=== PATIENT | female | born 1970 | race Caucasian/White ===

== ENCOUNTER → 2020-03-03 12:29 | Outpatient (CLI) | payer OTHER, SELFPAY ==
--- NOTE | ~2020-03-03 | MM_ITS ---
EXAMINATION: MM screening mitul BI w elmer HISTORY: Screening mammogram TECHNIQUE: Craniocaudal and mediolateral oblique 3-D tomosynthesis images were obtained and synthetic 2-D images were generated. CAD analysis was submitted and interpreted. COMPARISON: No prior mammogram is available for comparison at this institution. BREAST PARENCHYMAL COMPOSITION: There are scattered areas of fibroglandular density. FINDINGS: There are developing asymmetries in the right breast. There are developing clustered calcif ications in the upper outer quadrant of the left breast. IMPRESSION: 1. Developing right breast asymmetries. Developing clustered left breast calcifications. 2. Additional spot compression and mediolateral views with possible follow-up breast ultrasound recom mended. BI-RADS Category 0: Incomplete: Needs additional imaging evaluation. Reviewed, dictated and finalized at location A. IMPRESSION: 1. Developing right breast asymmetries. Developing clustered left breast calcif ications. 2. Additional spot compression and mediolateral views with possible follow-up b reast ultrasound recommended. BI-RADS Category 0: Incomplete: Needs additional imaging evaluation.
== END ==
PROVIDERS: PCP Family Medicine; Visit Provider Nurse Practitioner
DX: Z12.31 Encounter for screening mammogram for malignant neoplasm of breast (principal); R92.8 Other abnormal and inconclusive findings on diagnostic imaging of breast
CPT/HCPCS: 77063; 77067

== ENCOUNTER 2020-03-09 13:20 | Outpatient (CLI) | payer OTHER, SELFPAY ==
--- NOTE | ~2020-03-09 | MMUS_ITS ---
EXAMINATION: MM diagnostic mammo BI, US breast BI complete HISTORY: Developing right breast asymmetries and developing clustered left breast calcifications repo rted on 03/03/2020 bilateral digital screening mammogram TECHNIQUE: ML and spot 3-D tomosynthesis images of the breasts were performed and synthetic 2-D image s were generated. Magnification views of the left breast. CAD analysis was submitted and interpreted. High resolution complete bilateral breast ultrasound was performed. COMPARISON: 03/03/2020 bilateral digital screening mammogram 08/07/2017 bilateral digital screening mammogram FINDINGS: MAMMOGRAPHIC FINDINGS: No suspicious reproducible mass or architectural distortion of either breast is evident. Numerous bilateral microcalcifications are scattered in the breasts, more numerous on the left. Most of these appear benign, with circular shape, some with milk of calcium. However, there is one indeter minate cluster of grouped granular appearing microcalcifications situated in the upper outer quadrant of the left breast at mid to posterior depth. ULTRASOUND: Right breast: 12:00 3 cm from nipple: 6.3 x 4.6 x 7.1 mm simple cyst and 6.6 x 3.2 x 7.5 mm adjacent simple cyst 2:00 3 cm from nipple: 2.3 x 5.3 x 3.4 mm parallel circumscribed likely complicated cyst without inte rnal vascularity or posterior shadowing 7:00 2 cm from nipple: Parallel circumscribed 2.1 x 7.2 x 6.2 mm simple cyst with through transmissio n and posterior enhancement, no internal vascularity 8:00 2 cm from nipple: Multi-septated parallel circumscribed cyst measuring 2.3 x 6.3 x 4.0 mm area Left breast: 3:00 4 cm from nipple: 2.8 x 4.4 x 5.1 mm simple cyst, with no internal vascularity IMPRESSION: 1. Indeterminate cluster of grouped granular microcalcifications at mid to posterior depth in the upp er outer quadrant of the left breast 2. Stereotactic biopsy of left breast is recommended. BI-RADS category 4, suspicious findings. On 03/10/[address] Watts telephoned the report including the indeterminate granular microc alcifications at the upper outer quadrant of left breast and recommendation for stereotactic biopsy o f same to Dr. Daniel's Nurse Practitioner Mariam. Reviewed, dictated and finalized at location A. IMPRESSION: 1. Indeterminate cluster of grouped granular microcalcifications at mid to post erior depth in the upper outer quadrant of the left breast 2. Stereotactic biopsy of left breast is recommended. BI-RADS category 4, suspicious findings. On 03/10/[address] Watts telephoned the report including the indeter minate granular microcalcifications at the upper outer quadrant of left breast and recommendation for stereotactic biopsy of same to Dr. Daniel's Nurse Pract esvin Becerra.
== END 2020-03-09 13:21 | disposition home or self-care (01) ==
LOC: ANHIMG 13:23
PROVIDERS: PCP Family Medicine; Visit Provider Obstetrics & Gynecology Gynecology
DX: R92.8 Other abnormal and inconclusive findings on diagnostic imaging of breast (principal)
CPT/HCPCS: 76641; 77066

== ENCOUNTER → 2020-08-18 08:56 | Outpatient (CLI) | payer OTHER, SELFPAY ==
--- NOTE | ~2020-08-18 | XR_ITS ---
EXAMINATION: XR chest 2V EXAM DATE: 08/18/2020 09:18 INDICATION: Personal history of infection. Still having shortness of breath, cough and fatigue. TECHNIQUE: Frontal and lateral projections of the chest obtained and reviewed. There is no prior wes dy for comparison. FINDINGS: The lungs are clear. There are no pleural effusions. The cardiomediastinal silhouette is within normal limits. There is no pneumothorax suspected. The bones and soft tissues are unremarkab le. IMPRESSION: Normal chest x-ray exam. Reviewed, dictated and finalized at location A. IMPRESSION: Normal chest x-ray exam.
== END ==
PROVIDERS: PCP Family Medicine; Visit Provider Physician Assistant
DX: R05 Cough (principal); R06.02 Shortness of breath; Z86.19 Personal history of other infectious and parasitic diseases
CPT/HCPCS: 71046

== ENCOUNTER 2023-08-02 10:01 | Outpatient (CLI) | payer OTHER, SELFPAY ==
--- NOTE | 2023-08-02 11:06 | ECG_ITS ---
Measurements Intervals Johnson Rate: 62 P: 19 PA: 142 QRS: 34 QRSD: 100 T: 55 QT: 440 QTc: 450 Interpretive Statements SINUS RHYTHM MINIMAL Q WAVES- INFERIOR LEADS BORDERLINE ECG NO PREVIOUS ECG AVAILABLE FOR COMPARISON Electronically Signed On 08-02-2023 11:21:18 CDT by Saeed Ramirez D.O.
[2023-08-02 11:31] LABS: Hematocrit 40.1 % (37.0-47.0); Hemoglobin 13.2 g/dL (12.0-15.0)
[2023-08-02 11:40] LABS: Estimated Glomerular Filt Rate > 60; Glucose 89 mg/dL (65-110)
[2023-08-02 11:40] LABS: Urine Cotinine NEGATIVE
[2023-08-02 13:05] LABS: Hemoglobin A1C 5.4 % (<5.7)
== END 2023-08-02 10:02 | disposition home or self-care (01) ==
PROVIDERS: PCP Family Medicine; Visit Provider Orthopaedic Surgery
DX: M17.12 Unilateral primary osteoarthritis, left knee (principal); R06.02 Shortness of breath; Z01.818 Encounter for other preprocedural examination
CPT/HCPCS: 80307; 82040; 82565; 82947; 83036; 85014; 85018; 93005

== ENCOUNTER 2023-08-02 10:06 | Outpatient (CLI) | payer OTHER, SELFPAY ==
--- NOTE | ~2023-08-02 | CT_ITS ---
EXAMINATION: CT LE LT wo con DATE: 08/02/2023 10:37 INDICATION: Left knee osteoarthritis. TECHNIQUE: Computed tomography (CT) of the left lower limb was performed without intravenous contrast . Automated exposure control and iterative reconstruction technique were employed. The dose-length pr oduct was 2336.81 mGy-cm. COMPARISON: Left knee radiograph 07/14/2023 FINDINGS: There is an intrauterine device in expected position. There is mild left hip osteoarthritis . There is a benign bone island in left pelvis. There is severe osteoarthritis of medial compartment of the knee and mild osteoarthritis of lateral and patellofemoral compartments of the knee. There is a small knee joint effusion. There is a moderate-sized Ferrara's cyst. IMPRESSION: 1. Severe left knee osteoarthritis. 2. Small left knee joint effusion. 3. Moderate-sized left Ferrara's cyst. 4. Mild left hip osteoarthritis. Reviewed, dictated and finalized at location A.
== END 2023-08-02 10:07 | disposition home or self-care (01) ==
LOC: ANHIMG 10:07
PROVIDERS: PCP Family Medicine; Visit Provider Orthopaedic Surgery
DX: M17.12 Unilateral primary osteoarthritis, left knee (principal); M16.12 Unilateral primary osteoarthritis, left hip; M71.22 Synovial cyst of popliteal space [Baker], left knee; M25.462 Effusion, left knee
CPT/HCPCS: 73700; 80307; 82040; 82565; 82947; 83036; 85014; 85018; 93005

== ENCOUNTER 2023-11-22 11:53 | Outpatient (CLI) | payer OTHER, SELFPAY ==
[2023-11-22 13:11] LABS: Basophils Absolute Auto 0.1 K/mm3 (0.0-0.1); Basophils Percent Auto 0.8 % (0.2-1.2); Eosinophils Absolute Auto 0.1 K/mm3 (0-0.3); Eosinophils Percent Auto 1.4 % (0-4.4); Hematocrit 45.2 % (37.0-47.0); Immature Granulocyte Absolute 0.04 K/mm3 (0.00-0.031); Immature Granulocyte Percent A 0.5 % (0-0.5); Lymphocytes Absolute Auto 2.42 K/mm3 (0.9-3.2); Lymphocytes Percent Auto 32.8 % (18.3-44.2); Mean Corpuscular HGB Conc 33.2 g/dl (32-36); Mean Corpuscular Hemoglobin 28.4 pg (26-34); Mean Corpuscular Volume 85.6 fl (80-100); Mean Platelet Volume 10.4 fl (7.4-10.4); Monocytes Absolute Auto 0.7 K/mm3 (0.1-0.6); Monocytes Percent Auto 8.8 % (2.6-8.5); Neutrophils Absolute Auto 4.1 K/mm3 (1.3-6.7); Neutrophils Percent Auto 55.7 % (45.5-73.1); Platelet Count Result 262 k/mm3 (150-375); Red Blood Count 5.28 M/mm3 (4.2-5.4); Red Cell Distribution Width 12.9 % (11.5-14.5); White Blood Count 7.4 K/mm3 (4.5-10.0)
[2023-11-22 13:21] LABS: Urine Cotinine NEGATIVE
[2023-11-22 13:22] LABS: Hemoglobin A1C 5.4 % (<5.7)
[2023-11-22 13:33] LABS: Albumin Level 4.3 g/dL (3.5-5.1); Estimated Glomerular Filt Rate > 60; Glucose 91 mg/dL (65-110)
== END 2023-11-22 11:54 | disposition home or self-care (01) ==
LOC: ANHSURGERY 11:58
PROVIDERS: PCP Family Medicine; Visit Provider Orthopaedic Surgery
DX: Z01.818 Encounter for other preprocedural examination (principal); M17.12 Unilateral primary osteoarthritis, left knee
CPT/HCPCS: 80307; 82040; 82565; 82947; 83036; 85025; 87081

== ENCOUNTER 2023-12-12 01:35 | Day surgery (SDC) | payer OTHER, SELFPAY ==
--- NOTE | 2023-11-22 11:30 | PC.NURSE ---
PRE-OP INSTRUCTIONS, PLEASE READ CAREFULLY Report to the Outpatient Waiting Room, entrance under the green pavilion located off [facility], at time _0630_ on date _12/12/23_. Planned Procedure Time: _0830_. PACK A SMALL OVERNIGHT BAG AND LEAVE IN THE CAR ALONG WITH YOUR WALKER Time changes happen often and if your time is changed the preop area will call you the afternoon before. - You and your visitor will be asked to self-screen and do not enter if you have any COVID symptoms. - A mask is optional within the hospital at this time. -VISITING HOURS 8AM-8PM Patients may have clear liquids (water, carbonated beverages, clear teas, apple juice) until 3 hours prior to surgery (0530 AM) with a maximum of 20 ounces. - No food from midnight until time of surgery Take the following medications with a SIP of water the morning of surgery: _ESCITALOPRAM_ DO NOT STOP ANY OF YOUR OTHER PRESCRIPTION MEDICATIONS PRIOR TO SURGERY ?EXCEPT THE FOLLOWING Medications to discontinue per physician , Date to take last dose Please no make-up, nail croatian, hairspray, perfume, deodorant, or body powder the day of surgery. No jewelry (including any body piercings) or valuables the day of surgery, leave them at home. Please take a shower or bath the night before, or the morning of, surgery with an antibacterial soap. Wear comfortable, loose fitting clothing. - Jewelry must be removed prior to entering the operating room. Rings and piercings that are not removed may be cut off. - The hospital will not accept responsibility for valuables. - Please leave all valuables, including medications, at home the day of surgery. If you are going home after surgery, a licensed route salesman and driver must drive you home. - NO public transportation without another adult if you receive anesthesia. - We recommend that an adult stay with you for 24 hours following discharge. - We also recommend that you do not drive, make important decision, drink alcoholic beverages, or take any drugs that were not prescribed by your health care provider for at least 24 hours after your discharge time. Follow any additional instructions given to you from your surgeon. If you or anyone in your household have experienced Covid symptoms in the past week, please notify your surgeon or the nurse liaison at the phone number below for possible testing. Instructions given to _PATIENT_and asked if any additional questions and then verbalized understanding. Patient advised to call surgeon office or pre surgery nurse liaison [phone] if any additional questions.
[2023-11-22 12:13] VITALS: BP 140/60; PULSE 64; RESP 18; TEMP 36.9; O2SAT 99; BMI 29.0
--- NOTE | 2023-12-11 14:27 | WPDANESEPPF ---
Anes - Initial Pre Proc Eval Procedure: Operation Date: 12/12/23 07:30 Proposed Procedures p Left Total Knee Arthroplasty - Noel Mclean MD Date/Time: 12/11/23 14:27 Surgeon: Noel Mclean MD Pre Op Diagnosis: primary oa left knee Patient Data Age: 53 Gender: F Height: 1.73 m Weight: 86.5 kg Last Vital Signs Temp 36.9 C 11/22/23 12:13 Pulse 64 11/22/23 12:13 Resp 18 11/22/23 12:13 BP 140/60 11/22/23 12:13 Pulse Ox 99 11/22/23 12:13 O2 Del Method Room Air 11/22/23 12:13 Allergies Allergy/AdvReac Type Severity Reaction Status Date / Time No Known Allergies Allergy Verified 12/12/23 06:16 Home Medications Medication Instructions Recorded Confirmed Type escitalopram oxalate 10 mg tablet 10 mg PO DAILY 07/14/23 12/12/23 History Patient hx anesthesia problems: none Family hx anesthesia problems: none Results Review: All pre-operative results and documents have been reviewed as part of the pre-operative evaluation. [facility] Past Medical History Medical History Anxiety IUD (intrauterine device) in place Surgical History Surgical History S/P medial meniscectomy of left knee [place] teeth extracted Family History Family History Grandparent Diabetes mellitus Father Hypertension Sibling Hypertension Mother Carcinoma of colon Social History Social History Smoking status: Never smoker Second hand tobacco smoke exposure: No Additional smoking assessment comments: PT DENIES ALL FORMS OF TOBACCO USE Alcohol intake: current Drinks per week: 3 Alcohol use details: WINE Substance use: never Substance use type: does not use Do You Feel Safe in your Home?: Yes Lack of Transportation: No Lack of Food: Never True Current Housing: I Have Housing Concerned About Future Housing: No Difficulty Paying Gas/Electric Bills: No Difficulty Paying for Meds: No Currently Unemployed: No Education: Bachelor's Degree Difficulty w/ Childcare or Family Care: No Living arrangements: with family Occupation/Education: occupation Gender identity (if verbalized by the patient): Female Sexual Orientation (if Verbalized by the Patient): Straight or Heterosexual Spiritual care concerns: Yes Agree to blood products: Yes Anes - Eval Final PreProcedure Day of Procedure 12/11/23 14:27 Patient weight: overweight Heart: regular rate and rhythm Lungs: clear to auscultation Airway: Mallampati scale class II Neurological: alert and oriented Last oral intake: >/= 8 hours ASA classification: II Emergent: no Anesthetic plan: proceed Anesthesia type and monitoring: general LMA and standard monitoring Results Review: All pre-operative results and documents have been reviewed as part of the pre-operative evaluation. Informed Consent: The patient's anesthetic plan and its attendant risks and benefits were discussed with the patient/family/POA. Questions were solicited and answers provided to the satisfaction of the patient/family/POA.
[2023-12-12] VITALS (12 sets, daily range): BP systolic 107–150; BP diastolic 66–97; PULSE 70–102; RESP 12–18; TEMP 36.4–37; O2SAT 94–99
--- NOTE | ~2023-12-12 | XR_ITS ---
EXAMINATION: [id number] DATE: 12/12/2023 10:12 CHEMICAL TREATMENT PLANT TECHNICIAN INDICATION: Left knee arthroplasty TECHNIQUE: 2 views left knee FINDINGS: There is a left total knee arthroplasty in expected position. Subcutaneous gas with fluid and air in the joint are consistent with recent surgery. No evidence of periprosthetic fracture. IMPRESSION: 1. Recent left total knee arthroplasty. Reviewed, dictated and finalized at location L. ICAL TREATMENT PLANT TECHNICIAN
[2023-12-12] MEDS: ACETAMINOPHEN 500 MG TABLET 1000 MG PO ×4 (06:25→23:29)
[2023-12-12] MEDS: LACTATED RINGERS 1,000 ML 30 ML IV CONT ×2 (06:30→09:59)
[2023-12-12] MEDS: TRANEXAMIC ACID 1,000MG/ISO100 1,000 MG/100 ML BAG 200 MG IVPB (07:00)
--- NOTE | 2023-12-12 07:17 | WPDHPUPDATE1 ---
History and Physical Update Update Date/Time: 12/12/23 07:17 History and Physical has been reviewed, including an updated exam of the patient. There are NO changes in the patient's condition. Risks, benefits, and alternatives have been discussed and questions answered. Patient agrees to proceed with procedure.
--- NOTE | 2023-12-12 07:23 | WPDANESPNB ---
Anes - Peripheral Nerve Block Date/Time: 12/12/23 07:23 I have discussed with the patient/family/POA the placement of a peripheral nerve block for post-operative pain management, including associated risks, benefits, complications, and side effects. Alternative methods of post-operative analgesia were detailed. Questions were solicited and answers provided to the satisfaction of the patient/family/POA. Time-Out: A pre-procedural Time-Out was completed immediately before starting the procedure and confirmed: Patient Identification, Site, Procedure, Patient Position and the Availability of Requisite Equipment. Clinical Indications: Acute post-operative pain management requested by the operative surgeon. Nerve Block Insertion Note Anes-nerve block: adductor canal left Patient position: supine Skin prep: chlorhexidine Needle: 22 gauge, stimulating, insulated echogenic needle. Needle length: 80 mm Technique: ultrasound Injectate: bupivacaine 0.5% with epi 5 mcg/ml (30cc - no epi) Observations: tolerated well Complications: none Procedure start time:: 715 Procedure end time:: 718
[2023-12-12] MEDS: ceFAZolin 2 GM/D5W 50 ML 2 GM/50 ML BAG IVPB ×3 (07:33→23:31)
--- NOTE | 2023-12-12 10:24 | W.PM.PROC2 ---
Procedure Note - Detailed Date of Procedure 12/12/23 Pre-op Diagnosis primary oa left knee Post-op Diagnosis Same Procedure Performed Total knee arthroplasty, left. Surgeon Noel Mclean MD Anesthesia General and Regional (Subsartorial block.) Findings Excellent bone quality. Mild medial release. -1 CT planned cutting guides used. Slight external rotation added to closer match the AP axis. Femur upsized to size 4. Line to line medial lateral coverage. The size 3 indicated an excessive anterior bone resection. Description of Procedure Preoperative antibiotics were given. The limb was prepped and draped in the usual sterile fashion with a well-padded tourniquet high on the thigh. The limb was exsanguinated and the tourniquet inflated to 300 mmHg. A longitudinal incision was created just medial to the patella. A trivector approach to the knee was performed. Arthrotomy was taken down through the joint capsule. No significant releases were initially taken. The femur was exposed and the F1 jig was applied after removing distal cartilage. The jig was pinned and the distal cut carefully taken. Caliper measurements confirmed appropriate bony resections according to the preoperative templated plan. The standard 4 in 1 cutting jig for the femur was applied, with slight increased external rotation. The AP and anterior chamfer cuts were taken. The tibia was prepared using the T1 jig, after removing cartilage for the jig contact points. Proper alignment was checked with the alignment william. Gap balancing was performed. Gap measurements were taken and the knee was trialed. Excellent alignment and soft tissue balancing was confirmed. The posterior cruciate ligament was not significantly recessed along the proximal tibia. The patella was cut for resurfacing. Three lug holes were drilled. Meniscal remnants were removed. The trial components were assembled. Excellent range of motion and proper soft tissue balancing were confirmed throughout the full range of motion. Patellar tracking was excellent. The knee was copiously irrigated periodically throughout the procedure. The real implants were impacted into position and trialed. The real poly insert was palced. The wound was closed in layers with interrupted #1 Vicryl suture, #1 strata fix suture, 3-0 strata fix suture, 4-0 strata fix suture. Steri-Strips placed on the skin with the knee flexed. Sterile bulky dressing applied. The patient was brought to the recovery room in stable condition. There were no complications. Implants [employer] -1 instruments. Press-Fit total knee with size 4 femur cruciate retaining, size 4 tibia tritanium Press-Fit. 14 mm X 3 polyethylene cruciate retaining insert. 35 mm tritanium Press-Fit patella. Estimated Blood Loss 100 Tourniquet Time Total Tourniquet Time: 89 Drains No Complications No immediate complications Condition Stable Disposition PACU [facility] Billing Surgery - Charge Forward: Surgery Billing
--- NOTE | 2023-12-12 12:30 | PC.NURSE ---
This patient, Melanie Saxena, was admitted to Medical Room 340-01. Patient/family oriented to hospital policies and general routines including ID bracelet, bed and alarms, visiting hours, pain management, procedures, bathroom and other care routines, personal items, smoking policy, room service/diet, and visiting hours. Information on how to activate the Rapid Response Team has been discussed. Patient/Family are encouraged to report perceived risks to care and to ask questions if they do not understand what they are told or what they should do.
[2023-12-12] MEDS: ESCITALOPRAM OXALATE 10 MG TABLET PO (12:42)
[2023-12-12] MEDS: ASPIRIN 81 MG ENTERIC TABLET PO (17:26)
[2023-12-12] MEDS: SENNA/DOCUSATE SODIUM TABLET 2 TAB PO (17:27)
[2023-12-12] MEDS: CYCLOBENZAPRINE HCL 10 MG TABLET PO (20:44)
[2023-12-12] MEDS: oxyCODONE HCL (*CRX) 5 MG TAB IR PO (20:44)
[2023-12-12] MEDS: FAMOTIDINE 20 MG TABLET PO (20:44)
[2023-12-13 00:50] VITALS: BP 164/74; PULSE 71; RESP 16; TEMP 37.1; O2SAT 100
[2023-12-13 04:34] VITALS: BP 145/74; PULSE 77; RESP 16; TEMP 36.9; O2SAT 98
[2023-12-13] MEDS: ACETAMINOPHEN 500 MG TABLET 1000 MG PO ×2 (04:39→10:05)
[2023-12-13] MEDS: oxyCODONE HCL (*CRX) 5 MG TAB IR 10 MG PO (04:39)
[2023-12-13] MEDS: CYCLOBENZAPRINE HCL 10 MG TABLET PO (04:39)
[2023-12-13 05:47] LABS: Basophils Percent Auto 0.3 % (0.2-1.2); Eosinophils Percent Auto 0.2 % (0-4.4); Hematocrit 38.3 % (37.0-47.0); Hemoglobin 12.5 g/dL (12.0-15.0); Immature Granulocyte Absolute 0.04 K/mm3 (0.00-0.031); Immature Granulocyte Percent A 0.3 % (0-0.5); Lymphocytes Absolute Auto 2.17 K/mm3 (0.9-3.2); Lymphocytes Percent Auto 18.5 % (18.3-44.2); Mean Corpuscular HGB Conc 32.6 g/dl (32-36); Mean Corpuscular Hemoglobin 28.2 pg (26-34); Mean Corpuscular Volume 86.5 fl (80-100); Mean Platelet Volume 10.8 fl (7.4-10.4); Monocytes Absolute Auto 1.3 K/mm3 (0.1-0.6); Monocytes Percent Auto 10.7 % (2.6-8.5); Neutrophils Absolute Auto 8.2 K/mm3 (1.3-6.7); Platelet Count Result 214 k/mm3 (150-375); Red Blood Count 4.43 M/mm3 (4.2-5.4); Red Cell Distribution Width 12.6 % (11.5-14.5); White Blood Count 11.8 K/mm3 (4.5-10.0)
[2023-12-13 06:01] LABS: Anion Gap 6 mmol/L (8-16); Blood Urea Nitrogen 12 mg/dL (7-17); Calcium 8.3 mg/dL (8.4-10.2); Carbon Dioxide 27 mmol/L (22-30); Chloride 104 mmol/L (98-107); Estimated CRCL calculation 81 ml/min; Estimated Glomerular Filt Rate > 60; Glucose 102 mg/dL (65-110); Potassium 4.1 mmol/L (3.4-5.0); Sodium 137 mmol/L (137-145)
--- NOTE | 2023-12-13 08:13 | PM.DS ---
DS: Admitting Diagnosis Discharge Date 12/13/22 Admitting Diagnosis OA knee Left DS: Discharge Diagnosis Discharge Diagnosis (1) Status post total left knee replacement: Code(s): Z96.652 - Presence of left artificial knee joint Status: Acute Assessment and Plan: Postop day 1: Left total knee arthroplasty. Patient tolerated procedure well. No complications. Pain manageable with pain medication. No numbness or tingling. We had a lengthy discussion regarding postoperative wound care, limitations, expectations, and exercises. Patient shows good understanding. She has had initial physical therapy and is tolerating it well. DVT prophylaxis: 81 mg baby aspirin b.i.d. for 14 days. Compression socks. Pain medication: Percocet. Ibuprofen. Prednisone. Patient has followup appointment with Dr. Mclean in 3 weeks. DS: Summary Hospital Course Reason for hospitalization: Total knee arthroplasty Hospital Course: Patient tolerated procedure well. Has had initial PT/OT. Status at Discharge Functional status at discharge: uses cane/walker Overall status at discharge: patient is progressing back to baseline Time Spent with Patient Time attestation: Total time spent providing and/or coordinating discharge services: Exam Narrative: 53-year-old overweight female. Resting comfortably in bed. Alert and oriented x3. No acute distress. Wearing compression socks bilaterally. Dressing dry and intact without drainage on Mepilex. Mild swelling. No ecchymosis. No erythema. No hematoma. Range of motion limited due to pain. Calf nontender. Neurologic status intact. No varicosities. Distal pulses palpable. Fires quad. DS: Data Data Completed and Pending Labs on day of discharge: Labs from last 24 hours 12/13/23 05:18 WBC 11.8 H RBC 4.43 Hgb 12.5 Hct 38.3 MCV 86.5 MCH 28.2 MCHC 32.6 RDW 12.6 Plt Count 214 MPV 10.8 H Immature Gran % (Auto) 0.3 Neut % (Auto) 70.0 Lymph % (Auto) 18.5 [place] % (Auto) 10.7 H Eos % (Auto) 0.2 Baso % (Auto) 0.3 Lymph # (Auto) 2.17 [place] # (Auto) 1.3 H Eos # (Auto) 0.0 Baso # (Auto) 0.0 Abs Immat Gran (auto) 0.04 H Absolute Neuts (auto) 8.2 H Absolute Nucleated RBC 0.0 Nucleated RBC % 0.0 Sodium 137 Potassium 4.1 Chloride 104 Carbon Dioxide 27 Anion Gap 6 L BUN 12 Creatinine 0.80 Estim Creat Clear Calc 81 Estimated GFR > 60 Glucose 102 Calcium 8.3 L Discharge Plan Discharge Patient Disposition: Home, Self-Care Discharge Instructions: See green instruction sheets Stand Alone Forms: General Discharge Instructions Follow-up/Referrals: Marizol Chau PA [Physician [employer]] - Discharge Medications: New aspirin 81 mg tablet,delayed release (DR/EC) 81 mg PO BID 14 Days Qty: 28 0RF prednisone 5 mg tablet 5 mg PO DAILY 21 Days Qty: 21 0RF oxycodone-acetaminophen 5-325 mg tablet 1 - 2 tablet PO Q4-6H MDD 6 PRN (Reason: pain) Qty: 30 0RF Continued escitalopram oxalate 10 mg tablet 10 mg PO DAILY
[2023-12-13 08:50] VITALS: PULSE 72; RESP 16; O2SAT 100
[2023-12-13] MEDS: SENNA/DOCUSATE SODIUM TABLET 2 TAB PO (08:57)
[2023-12-13] MEDS: ceFAZolin 2 GM/D5W 50 ML 2 GM/50 ML BAG IVPB (08:57)
[2023-12-13] MEDS: polyethylene glycoL 3350 17 GM POWD.PACK PO (08:57)
[2023-12-13] MEDS: ASPIRIN 81 MG ENTERIC TABLET PO (08:57)
[2023-12-13] MEDS: FAMOTIDINE 20 MG TABLET PO (08:57)
[2023-12-13] MEDS: predniSONE 5 MG TABLET PO (08:58)
--- NOTE | 2023-12-13 09:24 | P.PNAN_ITS ---
Anes - Prog Note Post-Op Date/Time: 12/13/23 09:24 Cardiovascular status: normal Respiratory status: normal Airway patency: baseline Mental status: baseline Post-Op hydration status: normal Vital Signs: Last Vital Signs Temp 36.9 C 12/13/23 04:34 Pulse 77 12/13/23 04:34 Resp 16 12/13/23 04:34 BP 145/74 H 12/13/23 04:34 Pulse Ox 98 12/13/23 04:34 O2 Del Method Room Air 12/12/23 13:37 O2 Flow Rate 8 12/12/23 10:10 Pain Score (VAS): 01/27 I/O: Intake & Output 12/12/23 12/13/23 12/13/23 23:59 07:59 15:59 Intake Total 290 50 Balance 290 50 Laboratory Tests 12/13/23 05:18 12/13/23 05:18 12/13/23 05:18 WBC 11.8 H RBC 4.43 Hgb 12.5 Hct 38.3 MCV 86.5 MCH 28.2 MCHC 32.6 RDW 12.6 Plt Count 214 MPV 10.8 H Immature Gran % (Auto) 0.3 Neut % (Auto) 70.0 Lymph % (Auto) 18.5 [place] % (Auto) 10.7 H Eos % (Auto) 0.2 Baso % (Auto) 0.3 Lymph # (Auto) 2.17 [place] # (Auto) 1.3 H Eos # (Auto) 0.0 Baso # (Auto) 0.0 Abs Immat Gran (auto) 0.04 H Absolute Neuts (auto) 8.2 H Absolute Nucleated RBC 0.0 Nucleated RBC % 0.0 Sodium 137 Potassium 4.1 Chloride 104 Carbon Dioxide 27 Anion Gap 6 L BUN 12 Creatinine 0.80 Estim Creat Clear Calc 81 Estimated GFR > 60 Glucose 102 Calcium 8.3 L Post-procedural complaints: none Patient Feedback: Patient satisfied with anesthetic care.
[2023-12-13] MEDS: ESCITALOPRAM OXALATE 10 MG TABLET PO (10:05)
[2023-12-13] MEDS: oxyCODONE HCL (*CRX) 5 MG TAB IR PO (12:01)
== END 2023-12-13 13:38 | disposition home or self-care (01) ==
LOC: ANHSURGERY 09:03 → ANH3MED 11:07
PROVIDERS: Physician Assistant Surgical; PCP Family Medicine; Visit Provider Orthopaedic Surgery
PROC: (CPT 27447; principal; 2023-12-12 07:30)
DX: M17.12 Unilateral primary osteoarthritis, left knee (principal); G89.18 Other acute postprocedural pain; F41.9 Anxiety disorder, unspecified; Z79.899 Other long term (current) drug therapy
CPT/HCPCS: 27447; 64447; 36415; 73560; 80048; 80307; 82040; 82565; 82947; 83036; 85025; 86850; 86900; 86901; 87081; 97110; 97116; 97161; 97165; 97530; 97535; A9270; C1713; C1776; J0171; J0690; J1100; J1170; J1885; J2250; J2270; J2405; J2704; J2795; J3010; J7120; J7512

== ENCOUNTER 2024-12-25 13:16 | Outpatient (CLI) | payer OTHER, SELFPAY ==
--- NOTE | ~2024-12-25 | XR_ITS ---
EXAMINATION: XR chest 2V 12/25/2024 13:43 INDICATION: Shortness of breath PROCEDURE: 2 view chest COMPARISON: 08/18/2020 FINDINGS: The lungs are clear. The cardiomediastinal silhouette is within normal limits. There are no pleural effusions. There is no pneumothorax suspected. IMPRESSION: 1: NO ACUTE CARDIOPULMONARY DISEASE. Reviewed, dictated and finalized at location B. CARRIER INSPECTOR
== END 2024-12-25 13:17 | disposition home or self-care (01) ==
LOC: MICIMG 13:17
PROVIDERS: PCP Family Medicine; Visit Provider Student in an Organized Health Care Education/Training Program
DX: R06.02 Shortness of breath (principal)
CPT/HCPCS: 71046

== ENCOUNTER 2025-01-13 02:41 | Day surgery (SDC) | payer OTHER, SELFPAY ==
[2024-12-26 13:15] VITALS: BMI 28.8
--- OUTSIDE RECORDS SUMMARY | 2025-01-13 02:44 | XMS_ITS | Clinical Summary ---
Author Organization [facility] Address [address] [place] [address] Care Team Providers Care Auditing Coder Name Role Phone Gloria Abreu MD Primary Care Provider [phone] Mel Daniel MD Unavailable [phone] Allergies No known active allergies Medications No known medications Active Problems Problem Noted Date Diagnosed Date Fibrocystic breast changes 05/12/2021 Abnormal findings on diagnostic imaging of breas t 03/23/2020 Surgical History Surgery Date Site/Laterality Comments KNEE SURGERY BREAST BIOPSY 03/23/2020 Left Family History Medical History Relation Name Comments Colon cancer Mother Relation Name Status Comments Mother Social History Tobacco Use Types Packs/Day Years Used Date Smoking Tobacco: Never Smokeless Tobacco: Never Alcohol Use Standard Drinks/Week Comments Yes 0 (1 standard drink = 0.6 oz pur e alcohol) Comments No Sex and Gender Information Value Date Recorded Sex Assigned at Not on file Legal Sex Female 12:51 PM CDT Gender Identity Not on file Sexual Orientation Not on file Obstetrics History Last Filed Vital Signs Vital Sign Reading Time Taken Comments Blood Pressure - - Pulse - - Temperature - - Respiratory Rate - - Oxygen Saturation - - Inhaled Oxygen Concentration - - Weight 83.9 kg (184 lb 15.5 oz) 05/12/2021 3:08 PM CDT Height 172.7 cm (5' 8 ) 05/12/2021 3:08 PM CDT Body Mass Index 28.12 05/12/2021 3:08 PM CDT Plan of Treatment Health Maintenance Due Date Last Done Comments Cervical Cancer Screening 1970 Colon Cancer Screening-Colonoscopy 1970 Depression Screening 1970 Hepatitis C Screening 1970 Hepatitis B Screening 02/19/1988 Regular Well Visit/Exam 18-64 02/19/1988 Zoster Vaccine (1 of 2) 02/19/2020 DTaP/Tdap/Td Vaccine (2 - Td or Tdap) 10/17/2021 10/17/2011 Influenza Vaccine (#1) 2024 Breast Cancer Screening-Mammogram 10/11/2025 10/11/2024, 10/10/2023, 08/17/2022, Additional history exists Pneumococcal vaccine <65 Aged Out No longer eligible based on patient's age to complete this topic Procedures Procedure Name Priority Date/Time Associated Diagnosis Comments SCREENING MAMMOGRAM BILATERAL W LAINA Schedule Routine, Read Routine (OP Routine) 10/11/2024 3:47 PM DISPATCHER [employer] Screening mammogram, encounter for from Last 3 Months or Most Recently Relevant to Health Maintenance Results * Screening Mammogram Bilateral W Laina (10/11/2024 3:47 PM DISPATCHER [employer]) Anatomical Region Laterality Modality Breast Bilateral Mammography Narrative 10/14/2024 10:28 AM DISPATCHER [employer] Mammogram Technique: Bilateral Digital Breast Tomosynthesis, Bilateral C-view 2D Screening mammogram. Views obtained: bilateral craniocaudal and bilateral mediolateral oblique. Computer Aided Detection was performed. Mammogram Findings: The present examination has been compared to prior imaging studies performed at [facility] on 05/12/2021, 08/17/2022 and 10/10/2023. There are scattered areas of fibroglandular density. There is no suspicious abnormality in either breast. There are no significant changes from the prior study. There is no suspicious abnormality in either breast. Impression: There is no mammographic evidence of malignancy. Annual screening mammography is recommended. OVERALL FINAL ASSESSMENT: BI-RADS CATEGORY 2: Benign. Procedure Note Kristina Dowell MD - 10/14/2024 Mammogram Technique: Bilateral Digital Breast Tomosynthesis, Bilateral C-view 2D Screening mammogram. Views obtained: bilateral craniocaudal and bilateral mediolateral oblique. Computer Aided Detection was performed. Mammogram Findings: The present examination has been compared to prior imaging studies performed at [facility] on 05/12/2021, 08/17/2022 and 10/10/2023. There are scattered areas of fibroglandular density. There is no suspicious abnormality in either breast. There are no significant changes from the prior study. There is no suspicious abnormality in either breast. Impression: There is no mammographic evidence of malignancy. Annual screening mammography is recommended. OVERALL FINAL ASSESSMENT: BI-RADS CATEGORY 2: Benign. us Self Screening Mammogram IMG MAMMO PROCEDURES Fi nal Result from Last 3 Months or Most Recently Relevant to Health Maintenance Insurance [employer] OPEN ACCESS [employer] OPEN ACCESS BLUE [employer]AD[employer]AL OOS Care Teams Auditing Coder Relationship Specialty Start Date End Date Gloria Abreu MD PCP - General Family Medicine 06/28/22 Mel Daniel MD [address] [address] Referring Physician Gynecology 08/14/24
--- OUTSIDE RECORDS SUMMARY | 2025-01-13 02:44 | XMS_ITS | Encounter Summary ---
Author Organization [facility] Address [facility] [place] [address] Care Team Providers Care Harnessmaker Apprentice Name Role Phone Unavailable Primary Care Provider Unavailabl e Encounter Details Date Type Department Care Team (Late st Contact Info) Description 01/03/2025 Lab Requisition [facility] Physician [facility] - DermPath Lab [address] [facility] [place] [id number] Blanca Nunes MD [address] [place] [address] [place] [address] Basal cell carcinoma of skin of right lower limb, including hip Social History Tobacco Use Types Packs/Day Years Used Date Smoking Tobacco: Never Smokeless Tobacco: Never Sex and Gender Information Value Date Recorded Sex Assigned at Not on file Gender Identity Not on file Sexual Orientation Not on file documented as of this encounter Plan of Treatment Not on file documented as of this encounter Procedures Procedure Name Priority Date/Time Associated Diagnosis Comments DERMATOPATHOLOGY Routine 01/03/2025 12:0 0 AM FLAT BED OPERATOR Basal cell carcinoma of skin of right lower limb, including hip documented in this encounter Results * DERMATOPATHOLOGY (01/03/2025 12:00 AM FLAT BED OPERATOR) Case Report Dermatopathology Report Case: [id number] Authorizing Provider: Blanca Nunes MD Collected: 01/03/2025 12:00 AM Ordering Location: [facility] Physician [facility] - Received: 01/06/2025 01:43 PM DermPath Lab Pathologist: Lainey Cabrera MD Specimen: Skin, right anterior thigh 2:08 PM [facility] DERMATOPATHOLOGY LABORATORY Final Diagnosis Specimen A. SKIN, right anterior thigh: DERMAL SCAR RESIDUAL BASAL CELL CARCINOMA NOT IDENTIFIED (L90.5) 2:08 PM [facility] DERMATOPATHOLOGY [facility]ORATORY Clinical History BCC Check margins/prior biopsy 2:08 PM [facility]ERMATOPATHOLOGY [facility]ORAT[facility] Gross Description Specimen A: Received is one formalin filled container labeled with the patient's name and designated right anterior thigh. The specimen consists of a non-oriented ellipse of skin measuring [id number] mm. The epidermal surface is unremarkable. The margin is inked green. The 12 o'clock and 6 o'clock tips are submitted in cassette 1. The remainder of the ellipse is serially sectioned and submitted in cassette 2-3. Jar 0. 2:08 PM [facility] DERMATOPATHOLOGY [facility]ORATORY Microscopic Description Specimen A. SKIN, right anterior thigh: There are fibroblasts and collagen bundles oriented parallel to the skin surface. There are elongated blood vessels, some of which are oriented perpendicular to the skin surface. No basal cell carcinoma is identified. 2:08 PM [facility] DERMATOPATHOLOGY [facility]ORATORY Disclaimer An external and internal positive and negative controls are appropriate for the histochemical, immunohistochemical and immunofluorescence stain(s) in this case (if any), except where stated explicitly. The performance characteristics of the stain(s) cited in this report were developed and its performance characteristic determined by the Dermatopathology Laboratory at [facility], directed by Dr. Maude Cabrera. These tests need not be, and therefore are not, approved by the [place] Food and Drug Administration. The tests are used for clinical purposes. Billing Codes Specimen Charges Stain Charges 77200 1 2:08 PM [facility] DERMATOPATHOLOGY [facility]ORAT[facility] Embedded Images 2:08 PM [facility] DERMATOPATH[facility]Y [facility]ORATORY Pathology/Cytolog y TISSUE SPECIMEN FROM SKIN / Unknown 01/03/2025 01/06/2025 1:43 PM FLAT BED OPERATOR Blanca Nunes MD LAB - PATHOLOGY/CYTO LOGY ORDERABLES DERMATOPATHOLOGY LABORATORY [facility] - Department of Dermatology [facility] [address] [place] [address], [address] [phone] documented in this encounter Visit Diagnoses Diagnosis Basal cell carcinoma of skin of right lower limb, including hip Basal cell carcinoma of skin of lower limb, including hip documented in this encounter
--- OUTSIDE RECORDS SUMMARY | 2025-01-13 02:44 | XMS_ITS | Clinical Summary ---
Author Organization [facility] Address [address] [place] [address] Care Team Providers Care Vamp Maker Name Role Phone Unavailable Primary Care Provider Unavailabl e Source Comments [facility],non-owned Affiliates and Associated Physician Practices is amultiple site organization consisting of ambulatory clinics and hospital sitesin [place], [place], [place] and [place]. This disclosure is being madepursuant to the Care Everywhere program and may not contain all information available regarding this patient. Last updated 18.[facility] [employer] Allergies No known active allergies Medications * Be aware that medications may not be up to date on this document. Alwaysverify current medications with the patient. Medication Sig Dispensed Refills Start Date End Date Status EVENING PRIMROSE OIL PO Active Levonorgestrel (MIRENA, 52 MG, IU) Activ e benzonatate (TESSALON) 200 MG capsule Take 1 capsule by mouth 3 times daily as needed for Cough 30 capsule 04/10/2019 Active Encounters Date Type Department Care Team Description 01/03/2025 Lab Requisition [facility] - DermPath Lab [address] [facility] [place] [address] Blanca Nunes MD Basal cell carcinoma of skin of right lower limb, including hip from Last 3 Months Social History Tobacco Use Types Packs/Day Years Used Date Smoking Tobacco: Never Smokeless Tobacco: Never Sex and Gender Information Value Date Recorded Sex Assigned at Not on file Gender Identity Not on file Sexual Orientation Not on file Last Filed Vital Signs Vital Sign Reading Time Taken Comments Blood Pressure 136/84 04/10/2019 5:02 PM CDT Pulse 82 04/10/2019 5:02 PM CDT Temperature 37.3 C (99.2 F) 04/10/2019 5:02 PM CDT Respiratory Rate 16 04/10/2019 5:02 PM CDT Oxygen Saturation 99% 04/10/2019 5:02 PM CDT Inhaled Oxygen Concentration - - Weight 79.4 kg (175 lb) 04/10/2019 5:02 PM CDT Height 172.7 cm (5' 8 ) 04/10/2019 5:02 PM CDT Body Mass Index 26.61 04/10/2019 5:02 PM CDT Plan of Treatment Health Maintenance Due Date Last Done Comments COLOGUARD (AGES 45-75) - COL ON CA SCREENING 1970 COLON MONITORING 1970 COLONOSCOPY - COLON CA SCREENING 1970 CT COLONOGRAPHY - COLON CA SCREENING 1970 Colorectal Cancer Screening 1970 FIT - COLON CA SCREENING 1970 FLEX SIG - COLON CA SCREENING 1970 LIPID TESTING 1970 MAMMOGRAM 1970 PAP SMEAR 1970 HIV SCREENING 1985 HEPATITIS C SCREENING 02/14/1988 DTAP/TDAP/TD VACCINES (1 - Tdap) 1989 HEPATITIS B VACCINE (1 of 3 - 19+ 3-dose series) 1989 SCREENING FOR DIABETES 04/10/2019 PNEUMOCOCCAL VACCINE 50+ (1 of 1 - PCV) 02/19/2020 ZOSTER VACCINE (1 of 2) 02/19/2020 COVID-19 VACCINE (1 - 2023-2 5 season) 2024 INFLUENZA VACCINE (#1) 2024 DEPRESSION SCREENING 11/20/2024 HIB VACCINE Aged Out No longer eligi ble based on patient's age to complete this topic HPV VACCINE Aged Out No longer eligi ble based on patient's age to complete this topic MENINGOCOCCAL (Group B) VACCINE Aged Out No longer eligible based on patient's age to complete this topic MENINGOCOCCAL VACCINE Aged Out No elyssa marcos eligible based on patient's age to complete this topic Procedures Procedure Name Priority Date/Time Associated Diagnosis Comments DERMATOPATHOLOGY Routine 01/03/2025 12:0 0 AM SKIRT MAKER Basal cell carcinoma of skin of right lower limb, including hip from Last 3 Months Results * DERMATOPATHOLOGY (01/03/2025 12:00 AM [facility]) Case Report Dermatopathology Report Case: [id number] Authorizing Provider: Blanca Nunes MD Collected: 01/03/2025 12:00 AM Ordering Location: [facility] - Received: 01/06/2025 01:43 PM DermPath Lab Pathologist: Lainey Cabrera MD Specimen: Skin, right anterior thigh 2:08 PM [facility] DERMATOPATHOLOGY LABORATORY Final Diagnosis Specimen A. SKIN, right anterior thigh: DERMAL SCAR RESIDUAL BASAL CELL CARCINOMA NOT IDENTIFIED (L90.5) 2:08 PM [facility] DERMATOPATHOLOGY LABORATORY Clinical History BCC Check margins/prior biopsy 2:08 PM [facility] DERMATOPATHOLOGY LABORATORY Gross Description Specimen A: Received is one formalin filled container labeled with the patient's name and designated right anterior thigh. The specimen consists of a non-oriented ellipse of skin measuring [id number] mm. The epidermal surface is unremarkable. The margin is inked green. The 12 o'clock and 6 o'clock tips are submitted in cassette 1. The remainder of the ellipse is serially sectioned and submitted in cassette 2-3. Jar 0. 2:08 PM [facility] DERMATOPATHOLOGY LABORATORY Microscopic Description Specimen A. SKIN, right anterior thigh: There are fibroblasts and collagen bundles oriented parallel to the skin surface. There are elongated blood vessels, some of which are oriented perpendicular to the skin surface. No basal cell carcinoma is identified. 2:08 PM [facility] DERMATOPATHOLOGY LABORATORY Disclaimer An external and internal positive and negative controls are appropriate for the histochemical, immunohistochemical and immunofluorescence stain(s) in this case (if any), except where stated explicitly. The performance characteristics of the stain(s) cited in this report were developed and its performance characteristic determined by the Dermatopathology Laboratory at [facility], directed by Dr. Madue Cabrera. These tests need not be, and therefore are not, approved by the [place] Food and Drug Administration. The tests are used for clinical purposes. Billing Codes Specimen Charges Stain Charges 31558 1 2:08 PM [facility] DERMATOPATHOLOGY LABORATORY Embedded Images 2:08 PM [facility] DERMATOPATHOLOGY LABORATORY Pathology/Cytolog y TISSUE SPECIMEN FROM SKIN / Unknown 01/03/2025 01/06/2025 1:43 PM SKIRT MAKER Blanca Nunes MD LAB - PATHOLOGY/CYTO LOGY ORDERABLES DERMATOPATHOLOGY LABORATORY [facility] - Department of Dermatology [address], [address] [phone] from Last 3 Months
--- OUTSIDE RECORDS SUMMARY | 2025-01-13 02:44 | XMS_ITS | Patient Health Summary ---
Author Organization [facility] Address [address] [place] [address] Care Team Providers Care Catering Server Name Role Phone Unavailable Primary Care Provider Unavailabl e Note from [facility],non-owned Affiliates and Associated Physician Practices is amultiple site organization consisting of ambulatory clinics and hospital sitesin [place], [place], [place] and [place]. This disclosure is being madepursuant to the Care Everywhere program and may not contain all information available regarding this patient. Last updated 18.[facility] Allergies No known active allergies Medications * Be aware that medications may not be up to date on this document. Alwaysverify current medications with the patient. * EVENING PRIMROSE OIL PO * Levonorgestrel (MIRENA, 52 MG, IU) * benzonatate (TESSALON) 200 MG capsule(Started 04/10/2019) Take 1 capsule by mouth 3 times daily as needed for Cough Social History Tobacco Use Types Packs/Day Years [...] Mass Index 26.61 04/10/2019 5:02 PM CDT Procedures * DERMATOPATHOLOGY(Performed 01/03/2025) Performed for Basal cell carcinoma of skin of right lower limb, including hip * DERMATOPATHOLOGY(Performed 09/23/2024) * DERMATOPATHOLOGY(Performed 08/09/2022) * DERMATOPATHOLOGY(Performed 06/02/2020) * INFLUENZA A+B - POINT OF CARE (AMB)(Performed 04/10/2019) Performed for Upper respiratory tract infection, unspecified type * STREP A SCREEN - POINT OF CARE (AMB) STL(Performed 04/10/2019) Performed for Upper respiratory tract infection, unspecified type * URINALYSIS AUTO - POINT OF CARE (AMB) STL(Performed 04/10/2019) Performed for Acute cystitis with hematuria * CULTURE URINE(Performed 04/10/2019) Performed for Acute cystitis with hematuria * DERMATOPATHOLOGY(Performed 01/03/2018) * DERMATOPATHOLOGY(Performed 06/29/2016) * DERMATOPATHOLOGY(Performed 10/14/2014) * DERMATOPATHOLOGY(Performed 08/15/2012) Results * DERMATOPATHOLOGY (01/03/2025 12:00 AM ACCOUNT EXECUTIVE KEY ACCOUNTS) Only the most recent of8 resultswithin the time period is included. Case Report Dermatopathology Report Case: [id number] Authorizing Provider: Blanca Nunes MD Collected: 01/03/2025 12:00 AM Ordering Location: [facility] - Received: 01/06/2025 01:43 PM DermPath Lab Pathologist: Lainey Cabrera MD Specimen: Skin, right anterior thigh 2:08 PM ACCOUNT EXECUTIVE KEY ACCOUNTS DERMATOPATHOLOGY LABORATORY Final Diagnosis Specimen A. SKIN, right anterior thigh: DERMAL SCAR RESIDUAL BASAL CELL CARCINOMA NOT IDENTIFIED (L90.5) 5 2:08 PM ACCOUNT EXECUTIVE KEY ACCOUNTS DERMATOPATHOLOGY LABORATORY Clinical History BCC Check margins/prior biopsy 2:08 PM ACCOUNT EXECUTIVE KEY ACCOUNTS DERMATOPATHOLOGY LABORATORY Gross Description Specimen A: Received is one formalin filled container labeled with the patient's name and designated right anterior thigh. The specimen consists of a non-oriented ellipse of skin measuring [id number] mm. The epidermal surface is unremarkable. The margin is inked green. The 12 o'clock and 6 o'clock tips are submitted in cassette 1. The remainder of the ellipse is serially sectioned and submitted in cassette 2-3. Jar 0. 5 2:[address] [facility] DERMATOPATHOLOGY LABORATORY Microscopic Description Specimen A. SKIN, right anterior thigh: There are fibroblasts and collagen bundles oriented parallel to the skin surface. There are elongated blood vessels, some of which are oriented perpendicular to the skin surface. No basal cell carcinoma is identified. 5 2:[address] [facility] DERMATOPATHOLOGY LABORATORY Disclaimer An external and internal positive and negative controls are appropriate for the histochemical, immunohistochemical and immunofluorescence stain(s) in this case (if any), except where stated explicitly. The performance characteristics of the stain(s) cited in this report were developed and its performance characteristic determined by the Dermatopathology Laboratory at [facility], directed by Dr. Maude Cabrera. These tests need not be, and therefore are not, approved by the [place] Food and Drug Administration. The tests are used for clinical purposes. Billing Codes Specimen Charges Stain Charges 83406 1 5 2:[address] [facility] DERMATOPATHOLOGY LABORATORY Embedded Images 5 2:[address] [facility] DERMATOPATHOLOGY LABORATORY Pathology/Cytolog y TISSUE SPECIMEN FROM SKIN / Unknown 01/03/2025 01/06/2025 1:43 PM ACCOUNT EXECUTIVE KEY ACCOUNTS Blanca Nunes MD LAB - PATHOLOGY/CYTO LOGY ORDERABLES DERMATOPATHOLOGY LABORATORY [facility] - Department of Dermatology [address], [address] [phone] * INFLUENZA A+B - POINT OF CARE (AMB) (04/10/2019 7:28 PM CDT) Influenza A Antigen Rapid Negative Negative Influenza B Antigen Rapid Negative Negative Influenza Internal Control present NEGATIVE - POSITIVE Influenza Lot Number [id number] Influenza Expiration Date 10 01 2020 Other NASOPHARYNGEAL SWAB / Unknown 04/10/2019 7:28 PM CDT Shonda Mcdaniels [facility] LAB - POINT OF GA RE ORDERABLES * STREP A SCREEN (04/10/2019 5:17 PM CDT) Pathologist [facility] Strep A Rapid POCT Negative Negative Strep A Internal Control Present Lot # [id number] Expiration Date 09 19 2020 Throat ENTIRE THROAT (SURFACE REGION OF NECK) / Unknown 04/10/2019 5:17 PM CDT [facility] - POINT OF GA RE ORDERABLES * (ABNORMAL) URINALYSIS AUTO - POINT OF CARE (AMB) STL (04/10/2019 5:16 PM CDT) Pathologist [facility] Clarity UA POCT cloudy Color UA POCT yellow Leukocyte UA 70 Negative Nitrite UA POCT negative Negative Urobilinogen UA 0.2 0.1 - 1.0 Protein UA POCT trace Negative pH UA 6.5 5.0 - 8.0 pH units Blood UA 50 Negative Specific [place] UA POCT 1.010 1.002 - 1.030 Ketone UA negative Negative Bilirubin UA POCT negative Negative Glucose UA negative Negative Expiration Date 12 04 2020 Lot # [id number] Verified Yes Yes Urine URINE / Unknown 04/10/2019 5 :16 PM CDT [facility] - POINT OF GA RE ORDERABLES * (ABNORMAL) CULTURE URINE (04/10/2019 5:15 PM CDT) Pathologist [facility] Urine Culture Routine Final report(A) [facility] INSURANCE BILL Result 1 Escherichia coli(A) [facility] INSURANCE BILL Comment: Greater than 100,000 colony forming units per mL Cefazolin <=4 ug/mL Cefazolin with an AMBER <=16 predicts susceptibility to the oral agents cefaclor, cefdinir, cefpodoxime, cefprozil, cefuroxime, cephalexin, and loracarbef when used for therapy of uncomplicated urinary tract infections due to E. coli, Klebsiella pneumoniae, and Proteus mirabilis. Antimicrobial Susceptibility [facility] INSURANCE BILL Comment: S = Susceptible; I = Intermediate; R = Resistant P = Positive; N = Negative MICS are expressed in micrograms per mL Antibiotic RSLT#1 RSLT#2 RSLT#3 RSLT#4 Amoxicillin/Clavulanic Acid S Ampicillin S Cefepime S Ceftriaxone S Cefuroxime S Ciprofloxacin S Ertapenem S Gentamicin S Imipenem S Levofloxacin S Meropenem S Nitrofurantoin S Piperacillin/Tazobactam S Tetracycline S Tobramycin S Trimethoprim/Sulfa S Urine URINE SPECIMEN OBTAINED BY CLEAN CATCH PROCEDURE / Unknown 04/10/2019 5:15 PM CDT 04/10/2019 Narrative Resulting Agency Comment Lab Testing performed at: [facility] [address] [facility] [id number] Shonda Mcdaniels APRN-[place]ALDINE LAB - MICROBIOLOG Y ORDERABLES [facility] [address] [place] [address]
--- OUTSIDE RECORDS SUMMARY | 2025-01-13 02:44 | XMS_ITS | Data Portability ---
Author Organization [place] [facility], Main Office Address [address] [place] [address] Assessment Encounter Date Assessment Date Assessment LastModified by Organization Details LastModified Time 04/18/2023 04/18/2023 Patient presents knee pain bilaterally. She has had previous treatment in her knees which does help however not for some time. She has tried medicine therapy cortisone exercise time. On exam she has motion her knees from about 3-110 degrees good varus deformity grinding crepitus and pain with any manipulation. Her x-rays show [id number]-[id number] arthritis. She would like to have a knee replacement I discussed this risks benefits limitations and alternatives. We will proceed with a left into the right later in the meantime I gave her an injection her knee will try prednisone taper for pain and inflammation she can sleep right now. She has failed conservative treatment will proceed per her request, discussed. per Not available 04/18/2023 16:42:43 Plan of Treatment Reminders Order Date Submit Date Provider Last Modified By Organization Details Last Modified Time Details Appointments None recorded. Lab None recorded. Referral None recorded. Procedures injection/a spiration joint/bursa (PROC) - in office procedure, administere d by provider 2022 023 [email or web address] In-Office Order, Internal Use Only DO Not Attach Compendium DO Not Attach Compendium, Do Not Delete/merge, [id number] 16:08:15 Surgeries None recorded. Imaging XR, knee 2022 023 josh 158 [facility] [place], [address], [place], [address], 16:48:11 Medication Orders Kenalog 10 mg/mL suspension for injection 2022 023 [facility] #[id number], [address], [phone], 3 16:19:13 ropivacaine (PF) 5 mg/mL (0.5 %) injection solution 2022 023 [facility] #[id number], [address], [phone], 3 16:19:13 prednisone 10 mg tablets in a dose pack 2022 023 [facility] #[id number], [address], [phone], 16:33:20 Patient TargetsNo targets recorded. Patient InstructionsNo instructions recorded. Reason for Referral None Reported. Results Created Date Observation Date Name Description Value Unit Range Abnormal Flag Note LastModifiedBy Organization Detail LastModifiedTime 04/18/20 23 XR, knee No observ ation record ed. per [facility] [place] [address] [address], [place], [address], 04/18/2023 16:48:11 Result Notes None recorded. Problems Name Problem SNOMED Code Status Onset Date Resolution Date Notes Provider Name and Address Organization Details Recorded Time Osteoarthr itis [id number] Active Not Available [employer] 14:10:26 Pain of bilateral knee joints 7687433110896 04 Active 2022 Becca Aguirre CNA null, [place] [employer] [facility] 15:29:13 Problem Notes None recorded. Procedures Surgical History Date Name Laterality Status Provider Name and Address Organization Details Recorded Time Ortho - Cortisone Injection completed Behzad Coates MD [address] [facility] [address], [place], [address], [facility] [employer] 04/18/2023 16:40:48 Knee Surgery completed Becca Aguirre CNA [place] [facility] 04/18/2023 15:28:50 Imaging Results Imaging Date Name Status LastModified by Organiz ation Details LastModified Time 04/18/2023 XR, knee completed per [facility] [place] [address], [place], [address], 04/18/2023 16:48:11 Procedure Notes None recorded. Medical Equipment None Reported. Allergies No known drug allergies Medications Name Sig Start Date Stop Date Status Note LastModified by Organization Details LastModified Time prednisone 10 mg tablet active Not Available Not Available Not Available paroxetine 10 mg tablet 04/18 completed Not Available Not Available Not Available azithromyci n 250 mg tablet 08/12 completed Not Available Not Available Not Available cefpodoxime 100 mg tablet TAKE 1 TABLET BY MOUTH TWICE DAILY 04/18 completed Not Available Not Available Not Available benzonatate 200 mg capsule 04/18 completed Not Available Not Available Not Available sulfamethox azole 800 mg-trimetho prim 160 mg tablet 04/18 completed Not Available Not Available Not Available peg-electro lyte solution 420 gram oral solution 08/12 completed Not Available Not Available Not Available prednisone 10 mg tablets in a dose pack Take 1 tab by mouth, 3 times a day for 3 daysTake 1 tab by mouth 2 times a day for 2 daysTake 1 tab by mouth once a day for 1 day 2022 active Not Available Not Available Not Avai lable Kenalog 10 mg/mL suspension for injection Take 40 mg by injection route. 2022 active [facility]: 0003- 0494- 20 Not Available Not Available Not Available diclofenac sodium 75 mg tablet,ann yed release 08/12 completed Not Available Not Available Not Available hydroxyzine HCl 25 mg tablet TAKE 1 TABLET BY MOUTH EVERY 6 HOURS NEEDED 04/18 completed Not Available Not Available Not Available methylpredn isolone 4 mg tablets in a dose pack 08/12 completed Not Available Not Available Not Available escitalopra m 10 mg tablet TAKE 1 TABLET BY MOUTH EVERY DAY active Not Available Not Available No t Available nitrofurant oin monohydrate /macrocryst als 100 mg capsule TAKE 1 CAPSULE BY MOUTH TWICE DAILY 04/18 completed Not Available Not Available Not Available lidocaine (PF) 10 mg/mL (1 %) injection solution In office injection administe red by the provider 04/18 completed [facility]: 0409- 4276- 17 Not Available Not Available Not Available ropivacaine (PF) 5 mg/mL (0.5 %) injection solution Take 40 mg by injection route. 2022 active [facility] [phone] -064- 01 Not Available Not Available Not Available Vitals Date Recorded Body height Body mass index (BMI) Body weight Provider Name and Address Organization Details Last Updated DateTime 04/18/2023 172.72 cm 28 kg/m2 76448 g Becca Aguirre CNA [facility] 04/18/2023 15:23:51 Social History Question Answer Notes LastModified by Organizat ion Details LastModified Time Tobacco Smoking Status Never Smoker Becca Aguirre CNA null [facility] 04/18/2023 15:28:17 What Is Your Level Of Alcohol Consumption? Occasional [email or web address] Information not available 04/18/2023 Sex: Unknown Functional Status None recorded. Mental Status None recorded. Family History Relationship Description Onset Age of this Age Resolved Age Notes LastModified by Organization Details LastModified Time Mother Family history of malignant neoplasm [email or web address] Not available 2022 15:27:54 Father Hypertensive disorder [email or web address] Not available 2022 15:28:06 Medical History No medical history recorded. Gynecological HistoryNo gynecological history recorded. Obstetrics History GPAL:G 0 P 0 0 0 0 Past Encounters Encounter ID Performer Location Encounter Start Date Encounter Closed Date Diagnosis/Indication Diagnosis SNOMED-CT Code Diagnosis ICD10 Code Diagnosis Note [id number] Behzad Coates MD [facility] [place] [address] [place] [address] 04/18/2023 15:07:59 04/24/2023 12:45:21 Pain of bilateral knee joints [id number] 75332 M25.561 M25.562 Health Concerns Section Related Observation LastModified by Organization Detai ls LastModified Time None Recorded Concern Status LastModified by Organization Details LastModified Time None Recorded Advance Directives Directive None Recorded Payers Encounter Date Sequence Insurance Name Policy Number Policy Lee Covered Member ID Lee Member ID Guarantor Name 04/18/2023 1 [facility] [id number] Melanie K Hemanth [id number] Melanie Saxena Notes Date Note Type Note Provider Name and Address Organization Details Recorded Time 04/18/2023 text/html KneeReported bypatient.Location: bilateral Quality:aching; throbbing; dull Severity:moderate Duration:continuous since onset Timing:chronic Alleviating Factors:sitting; lying down; rest; elevation Aggravating Factors:bending/squ atting; weightbearing Associated Symptoms:no weakness; no numbness; no tingling; no redness; no ecchymosis; no catching/locking; no popping/clicking; no buckling; no instability; no radiation down leg; no drainage; no fever; no chills; no weight loss; no change in bowel/bladder habits;swelling;war mth;grinding Behzad Coates MD [address] [place] [address], [address], [facility] 04/18/2023 16:48:15 OBGyn Episode No OBEpisode recorded.
--- OUTSIDE RECORDS SUMMARY | 2025-01-13 02:44 | XMS_ITS | Encounter Summary ---
Author Organization [facility] Address [address] [place] [address] Care Team Providers Care Disease Case Manager Rn Name Role Phone Unavailable Primary Care Provider Unavailabl e Encounter Details Date Type Department Care Team (Late st Contact Info) Description 08/10/2022 Lab Requisition [facility] DermPath Lab [address] [place] [address] Abraham Miller MD [address] [place] [address] Social History Tobacco Use Types Packs/Day Years [...] Priority Date/Time Associated Diagnosis Comments DERMATOPATHOLOGY Routine 08/09/2022 12:0 0 AM CDT documented in this encounter Results * DERMATOPATHOLOGY (08/09/2022 12:00 AM CDT) Case Report Dermatopathology Report Case: [id number] Authorizing Provider: Abraham Miller MD Collected: 08/09/2022 12:00 AM Ordering Location: [facility] Lab Received: 08/10/2022 04:16 PM Pathologist: Kiesha Quinonez MD Specimens: A) - Skin, left mid cheek B) - Skin, right lower lat ant chest 3:52 PM CDT DERMATOPATHOLOGY LABORATORY Final Diagnosis Specimen A. SKIN, left mid cheek: BASAL CELL CARCINOMA, NODULAR TYPE (C44.319) ULCER WITH SUPERFICIAL DERMAL NECROSIS (L98.499) (see microscopic description) Specimen B. SKIN, right lower lat ant chest: HEMANGIOMA (D18.01) 2 3:52 PM [facility] DERMATOPATHOLOGY LABORATORY Clinical History A: R/O BCC B: R/O inflamed casas hemangioma 2 3:52 PM CDT DERMATOPATHOLOGY LABORATORY Gross Description Specimen A: Received is one formalin filled container labeled with the patient's name and designated left mid cheek. The specimen consists of a shave biopsy measuring 4x4x1 mm. Jar 0. Specimen B: Received is one formalin filled container labeled with the patient's name and designated right lower lat ant chest. The specimen consists of a shave biopsy measuring 6x3x2 mm. Jar 0. 2 3:52 PM [facility] DERMATOPATHOLOGY LABORATORY Microscopic Description Specimen A. SKIN, left mid cheek: Within the dermis there are aggregates of basaloid cells with a high nuclear to cytoplasmic ratio and peripheral palisading. Lesional cells are positive for p63 and show patchy staining for BerEp4 immunostain. Lesional cells do not show significant staining with MART-1/MelanA. There is an ulcer, beneath which there are vascular proliferation, fibroblasts, and an edematous stroma. Additional deeper sections were obtained and reviewed. Specimen B. SKIN, right lower lat ant chest: In the dermis, there are dilated vascular spaces surrounded by widely spaced endothelial cells. 2 3:52 PM T DERMATOPATHOLOGY LABORATORY Disclaimer An external and internal positive and negative controls are appropriate for the histochemical, immunohistochemical and immunofluorescence stain(s) in this case (if any), except where stated explicitly. The performance characteristics of the stain(s) cited in this report were developed and its performance characteristic determined by the Dermatopathology Laboratory at [facility], directed by Dr. Maude Cabrera. These tests need not be, and therefore are not, approved by the [place] Food and Drug Administration. The tests are used for clinical purposes. Billing Codes Specimen Charges Stain Charges 58895 85788 1 1 11529 89008 88902 1 1 1 09/23/202 2 3:52 PM CDT DERMATOPATHOLOGY LABORATORY Embedded Images 2 3:52 PM CDT DERMATOPATHOLOGY LABORATORY Pathology/Cytology TISSUE SPECIMEN FROM SKIN / Unknown 08/09/2022 08/10/2022 4:16 PM CDT Miscellaneous samples (specimen) TISSUE SPECIMEN FROM SKIN / Unknown 08/09/2022 08/10/2022 4:16 PM CDT Abraham Miller MD LAB - PATHOLOGY/CYTO LOGY ORDERABLES DERMATOPATHOLOGY LABORATORY [facility] - Department of Dermatology [facility] [address] [place] [address], [address] [phone] documented in this encounter Visit Diagnoses Not on filedocumented in this encounter
--- OUTSIDE RECORDS SUMMARY | 2025-01-13 02:44 | XMS_ITS | Referral Summary ---
Author Organization [facility] Address [address] [facility] [place] [address] Care Team Providers Care Grizzly Worker Name Role Phone Unavailable Primary Care Provider Unavailabl e Source Comments [facility],non-owned Affiliates and Associated Physician Practices is amultiple site organization consisting of ambulatory clinics and hospital sitesin [place], [place], [place] and [place]. This disclosure is being madepursuant to the Care Everywhere program and may not contain all information available regarding this patient. Last updated 18.[facility] Encounters Date Type Department Care Team Description 01/03/2025 Lab Requisition [facility] - DermPath Lab [address] [facility] [place] [address] Blanca Nunes MD Basal cell carcinoma of skin of right lower limb, including hip from Last 3 Months Allergies No known active allergies Medications * [...] needed for Cough 30 capsule 04/10/2019 Active Social History Tobacco Use Types Packs/Day Years [...] 04/10/2019 5:02 PM CDT Plan of Treatment Not on file Procedures Procedure Name Priority Date/Time Associated Diagnosis Comments DERMATOPATHOLOGY Routine 01/03/2025 12:0 0 AM PLASTIC MACHINE OPERATOR Basal cell carcinoma of skin of right lower limb, including hip from Last 3 Months Results * DERMATOPATHOLOGY (01/03/2025 12:00 AM PLASTIC MACHINE OPERATOR) Case Report Dermatopathology Report Case: [id number] Authorizing Provider: Blanca Nunes MD Collected: 01/03/2025 12:00 AM Ordering Location: [facility] - Received: 01/06/2025 01:43 PM DermPath Lab Pathologist: Lainey Cabrera MD Specimen: Skin, right anterior thigh 5 2:08 PM [facility] DERMATOPATHOLOGY LABORATORY Final Diagnosis Specimen A. SKIN, right anterior thigh: DERMAL SCAR RESIDUAL BASAL CELL CARCINOMA NOT IDENTIFIED (L90.5) 5 2:08 PM [facility] DERMATOPATHOLOGY LABORATORY Clinical History BCC Check margins/prior biopsy 5 2:08 PM [facility] DERMATOPATHOLOGY LABORATORY Gross Description Specimen A: Received is one formalin filled container labeled with the patient's name and designated right anterior thigh. The specimen consists of a non-oriented ellipse of skin measuring 86i03m6 mm. The epidermal surface is unremarkable. The margin is inked green. The 12 o'clock and 6 o'clock tips are submitted in cassette 1. The remainder of the ellipse is serially sectioned and submitted in cassette 2-3. Jar 0. 5 2:08 PM [facility] DERMATOPATHOLOGY LABORATORY Microscopic Description Specimen A. SKIN, right anterior thigh: There are fibroblasts and collagen bundles oriented parallel to the skin surface. There are elongated blood vessels, some of which are oriented perpendicular to the skin surface. No basal cell carcinoma is identified. 5 2:08 PM [facility] DERMATOPATHOLOGY LABORATORY Disclaimer An external and internal positive and negative controls are appropriate for the histochemical, immunohistochemical and immunofluorescence stain(s) in this case (if any), except where stated explicitly. The performance characteristics of the stain(s) cited in this report were developed and its performance characteristic determined by the Dermatopathology Laboratory at [facility], directed by Dr. Maude Cabrera. These tests need not be, and therefore are not, approved by the [place] Food and Drug Administration. The tests are used for clinical purposes. Billing Codes Specimen Charges Stain Charges 46450 1 5 2:08 PM [facility] DERMATOPATHOLOGY LABORATORY Embedded Images 2:08 PM [facility] DERMATOPATHOLOGY LABORATORY Pathology/Cytolog y TISSUE SPECIMEN FROM SKIN / Unknown 01/03/2025 01/06/2025 1:43 PM PLASTIC MACHINE OPERATOR Blanca Nunes MD LAB - PATHOLOGY/CYTO LOGY ORDERABLES DERMATOPATHOLOGY LABORATORY [facility] - Department of Dermatology [address], [address] [phone] from Last 3 Months
--- OUTSIDE RECORDS SUMMARY | 2025-01-13 02:44 | XMS_ITS | Encounter Summary ---
Author Organization [facility] Address [facility] [facility] [place] [address] Care Team Providers Care Venetian Blind Worker Name Role Phone Unavailable Primary Care Provider Unavailabl e Encounter Details Date Type Department Care Team (Late st Contact Info) Description 06/03/2020 Lab Requisition [facility] DermPath Lab [address] [place] [address] Abraham Miller MD [address] [place] [address] Social History Tobacco Use Types Packs/Day Years [...] Priority Date/Time Associated Diagnosis Comments DERMATOPATHOLOGY Routine 06/02/2020 12:0 0 AM CDT documented in this encounter Results * DERMATOPATHOLOGY (06/02/2020 12:00 AM CDT) Case Report Dermatopathology Report Case: [id number] Authorizing Provider: Abraham Miller MD Collected: 06/02/2020 12:00 AM Ordering Location: [facility]erm[facility] Lab Received: 06/03/2020 12:58 PM Pathologist: Kiesha Quinonez MD Specimen: Skin, left pretibia 0 1:46 PM CDT DERMATOPATHOLOGY LABORATORY Final Diagnosis Specimen A. SKIN, left pretibia: INTRADERMAL NEVUS, NEUROTIZED (D22.9) (see microscopic description) 0 1:46 PM CDT DERMATOPATHOLOGY LABORATORY Clinical History R/O BCC 0 1:46 PM CDT DERMATOPATHOLOGY LABORATORY Gross Description Specimen A: Received is one formalin filled container labeled with the patient's name and designated left pretibia. The specimen consists of a shave biopsy measuring 7x7x1 mm. Jar 0. 0 1:46 PM CDT DERMATOPATHOLOGY LABORATORY Microscopic Description Specimen A. SKIN, left pretibia: Sections show nests, cords, and strands of cytologically bland melanocytes that mature with descent into the dermis. There are areas in which the melanocytes have a neuroid appearance. Some of these melanocytes are concentrated around blood vessels and adnexal structures. 0 1:46 PM CDT DERMATOPATHOLOGY LABORATORY Disclaimer An external and internal positive and negative controls are appropriate for the histochemical, immunohistochemical and immunofluorescence stain(s) in this case (if any), except where stated explicitly. The performance characteristics of the stain(s) cited in this report were developed and its performance characteristic determined by the Dermatopathology Laboratory at [facility], directed by Dr. Maude Cabrera. These tests need not be, and therefore are not, approved by the [place] Food and Drug Administration. The tests are used for clinical purposes. Billing Codes Specimen Charges Stain Charges 90113 1 0 1:46 PM CDT DERMATOPATHOLOGY LABORATORY Embedded Images 0 1:46 PM CDT DERMATOPATHOLOGY LABORATORY Pathology/Cytolog y TISSUE SPECIMEN FROM SKIN / Unknown 06/02/2020 06/03/2020 12:58 PM CDT Abraham Miller MD LAB - PATHOLOGY/CYTO LOGY ORDERABLES DERMATOPATHOLOGY LABORATORY [facility] - Department of Dermatology [address] [address], [facility] [phone] documented in this encounter Visit Diagnoses Not on filedocumented in this encounter
--- OUTSIDE RECORDS SUMMARY | 2025-01-13 02:44 | XMS_ITS | Referral Summary ---
Author Organization [facility] Address [address] [place] [address] Care Team Providers Care Production Tester Name Role Phone Gloria Abreu MD Primary Care Provider [phone] Mel Daniel MD Unavailable [phone] Allergies No known active allergies Medications No known medications Active Problems Problem Noted Date Diagnosed Date Fibrocystic breast changes 05/12/2021 Abnormal findings on diagnostic imaging of breas t 03/23/2020 Social History Tobacco Use Types Packs/Day Years [...] 05/12/2021 3:08 PM CDT Plan of Treatment Not on file Procedures Procedure Name Priority Date/Time Associated Diagnosis Comments SCREENING MAMMOGRAM BILATERAL W LAINA Schedule Routine, Read Routine (OP Routine) 10/11/2024 3:47 PM CRICKET COACH Screening mammogram, encounter for from Last 3 Months or Most Recently Relevant to Health Maintenance Results * Screening Mammogram Bilateral W Laina (10/11/2024 3:47 PM CRICKET COACH) Anatomical Region Laterality Modality Breast Bilateral Mammography Narrative 10/14/2024 10:28 AM CRICKET COACH Mammogram Technique: Bilateral Digital Breast Tomosynthesis, Bilateral C-view 2D Screening mammogram. Views obtained: bilateral craniocaudal and bilateral mediolateral oblique. Computer Aided Detection was performed. Mammogram Findings: The present examination has been compared to prior imaging studies performed at [facility] on 05/12/2021, 08/17/2022 and 10/10/2023. There are [...] compared to prior imaging studies performed at [facility] on 05/12/2021, 08/17/2022 and 10/10/2023. There are [...] Most Recently Relevant to Health Maintenance Insurance [employer] OPEN ACCESS NA OPEN ACCESS [facility] OOS Care Teams Production Tester Relationship Specialty Start Date End Date Gloria Abreu MD PCP - General Family Medicine 06/28/22 Mel Daniel MD [address] [place] [id number] Referring Physician Gynecology 08/14/24
--- OUTSIDE RECORDS SUMMARY | 2025-01-13 02:44 | XMS_ITS | Encounter Summary ---
Author Organization [facility] Address [address] [place] [address] Care Team Providers Care Box Lidder Name Role Phone Unavailable Primary Care Provider Unavailabl e Encounter Details Date Type Department Care Team (Late st Contact Info) Description 09/24/2024 Lab Requisition [facility] - DermPath Lab [address] [place] [phone] Abraham Miller MD [address] [place] [address] Social History Tobacco Use Types Packs/Day Years [...] Priority Date/Time Associated Diagnosis Comments DERMATOPATHOLOGY Routine 09/23/2024 3:33 AM STAFF DEVELOPER documented in this encounter Results * DERMATOPATHOLOGY (09/23/2024 3:33 AM STAFF DEVELOPER) Case Report Dermatopathology Report Case: [id number] Authorizing Provider: Abraham Miller MD Collected: 09/23/2024 03:33 AM Ordering Location: [facility] - Received: 09/24/2024 03:14 PM DermPath Lab Pathologist: Lainey Cabrera MD Specimens: A) - Skin, right superior lateral chest B) - Skin, right lateral side of chest C) - Skin, right mid matt thigh 3:49 PM [facility] DERMATOPATHOLOGY LABORATORY Final Diagnosis Specimen A. 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 SKIN, right lateral side of chest: INTRADERMAL MELANOCYTIC NEVUS (D22.5) Specimen C. SKIN, right mid matt thigh: BASAL CELL CARCINOMA, NODULAR TYPE (C44.712) 3:49 PM [facility] DERMATOPATHOLOGY LABORATORY Clinical History A: R/O dysplastic nevus. Check margins B: R/O inflamed angioma vs inflamed nevus C: R/O BCC vs SCC 3:49 PM [facility] DERMATOPATHOLOGY LABORATORY Gross Description Specimen A: Received is one formalin filled container labeled with the patients name and designated right superior lateral chest. The specimen consists of a shave removal measuring 5x4x1 mm. Jar 0. Specimen B: Received is one formalin filled container labeled with the patient's name and designated right lateral side of chest. The specimen consists of a shave biopsy measuring 10x9x2 mm. Jar 0. Specimen C: Received is one formalin filled container labeled with the patient's name and designated right mid matt thigh. The specimen consists of a shave biopsy measuring 35m04m9 mm. Jar 0. 3:49 PM [facility] DERMATOPATHOLOGY LABORATORY Microscopic Description Specimen A. SKIN, right superior lateral chest: Sections show a proliferation of blood vessels in lobules lined by uniform endothelial cells and by fibrous septa. This lesion is present at the margin of the specimen. Specimen B. SKIN, right lateral side of chest: There are nests of cytologically bland melanocytes within the dermis that mature with depth. Specimen C. SKIN, right mid matt thigh: Within the dermis there are aggregates of basaloid cells with a high nuclear to cytoplasmic ratio and peripheral palisading. 3:49 PM [facility] DERMATOPATHOLOGY LABORATORY Disclaimer An external and [...] purposes. Billing Codes Specimen Charges Stain Charges 03411 73539 41782 1 1 1 4 3:49 PM STAFF DEVELOPER DERMATOPATHOLOGY LABORATORY Embedded Images 3:49 PM STAFF DEVELOPER DERMATOPATHOLOGY LABORATORY Pathology/Cytology TISSUE SPECIMEN FROM SKIN / Unknown 09/23/2024 3:33 AM STAFF DEVELOPER 09/24/2024 3:14 PM STAFF DEVELOPER Miscellaneous samples (specimen) TISSUE SPECIMEN FROM SKIN / Unknown 09/23/2024 3:33 AM STAFF DEVELOPER 09/24/2024 3:14 PM STAFF DEVELOPER Miscellaneous samples (specimen) TISSUE SPECIMEN FROM SKIN / Unknown 09/23/2024 3:33 AM STAFF DEVELOPER 09/24/2024 3:14 PM STAFF DEVELOPER Abraham Miller MD LAB - PATHOLOGY/CYTO LOGY ORDERABLES DERMATOPATHOLOGY LABORATORY [facility] - Department of Dermatology [facility] Medicine [address] [place] [address], [address] [phone] documented in this encounter Visit Diagnoses Not on filedocumented in this encounter
[2025-01-13 07:02] VITALS: BP 153/86; PULSE 70; RESP 20; TEMP 36.3; O2SAT 99
[2025-01-13] MEDS: LACTATED RINGERS 1,000 ML 150 ML IV CONT (07:13)
--- NOTE | 2025-01-13 07:36 | WPDANESEPPF ---
Anes - Initial Pre Proc Eval Procedure: Operation Date: 01/13/25 08:00 Proposed Procedures p Screening Colonoscopy - Dominic La DO Date/Time: 01/13/25 07:36 Surgeon: Dominic La DO Pre Op Diagnosis: Screening for malignant neoplasm of colon Patient Data Age: 54 Gender: F Height: 1.73 m Weight: 86 kg Last Vital Signs Temp 97.3 F L 01/13/25 07:02 Pulse 70 01/13/25 07:02 Resp 20 01/13/25 07:02 BP 153/86 H 01/13/25 07:02 Pulse Ox 99 01/13/25 07:02 O2 Del Method Room Air 01/13/25 07:02 Allergies Allergy/AdvReac Type Severity Reaction Status Date / Time No Known Allergies Allergy Verified 01/13/25 07:01 Home Medications ?Medication ?Instructions ?Recorded ?Confirmed ?Type escitalopram oxalate 10 mg tablet 10 mg PO DAILY 07/14/23 01/13/25 History levonorgestrel (Mirena) 1 device intrauterine ONCE #1 ea 12/06/24 01/13/25 Rx Patient hx anesthesia problems: none Family hx anesthesia problems: none Results Review: All pre-operative results and documents have been reviewed as part of the pre-operative evaluation. 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) S/P medial meniscectomy of left knee [place] teeth extracted Family History Family History Grandparent Diabetes mellitus Father Hypertension Sibling Hypertension Mother Carcinoma of colon Social History Social History Smoking status: Never smoker Second hand tobacco smoke exposure: No Additional smoking assessment comments: PT DENIES ALL FORMS OF TOBACCO USE Alcohol intake: current Drinks per week: 3 Alcohol use details: WINE Substance use: never Substance use type: does not use Do You Feel Safe in your Home?: Yes Lack of Transportation: No Lack of Food: Never True Current Housing: I Have Housing Concerned About Future Housing: No Difficulty Paying Gas/Electric Bills: No Difficulty Paying for Meds: No Currently Unemployed: No Education: Bachelor's Degree Difficulty w/ Childcare or Family Care: No Living arrangements: with family Occupation/Education: occupation Gender identity (if verbalized by the patient): Female Sexual Orientation (if Verbalized by the Patient): Straight or Heterosexual Spiritual care concerns: Yes Agree to blood products: Yes Anes - Eval Final PreProcedure Day of Procedure 01/13/25 07:36 Patient weight: overweight Lungs: normal air movement Airway: Mallampati scale class II Neurological: alert and oriented Last oral intake: >/= 8 hours ASA classification: II Emergent: no Anesthetic plan: proceed Anesthesia type and monitoring: general GIVS and standard monitoring Results Review: All pre-operative results and documents have been reviewed as part of the pre-operative evaluation. Active w pickleball, no cp or sob. Informed Consent: The patient's anesthetic plan and its attendant risks and benefits were discussed with the patient/family/POA. Questions were solicited and answers provided to the satisfaction of the patient/family/POA.
--- NOTE | 2025-01-13 07:55 | PM.IMHP ---
H&P: HPI History of Present Illness Date/Time: 01/13/25 07:55 Chief Complaint: family history of colon cancer Narrative: this is a 54-year-old woman who presents for colonoscopy. Her last colonoscopy was 5 years ago and was normal. She has a family history of colon cancer in her mother who was diagnosed in her 60s. She denies any hematochezia or melena. Review of Systems Review of Systems: All systems reviewed & are unremarkable except as noted in HPI and below Constitutional: Constitutional: Denies chills, Denies fever(s), Denies headache(s) and Denies weight loss Eyes: Eyes: Denies change in vision ENT: Denies dizziness, Denies headache(s), Denies neck mass and Denies throat swelling Cardiovascular: Cardiovascular: Denies chest pain, Denies lightheadedness and Denies dyspnea Respiratory: Respiratory: Denies cough, Denies dyspnea and Denies wheezing Gastrointestinal: Gastrointestinal: Denies abdominal pain, Denies change in bowel habits, Denies nausea and Denies vomiting Genitourinary: Genitourinary: Denies hematuria and Denies dysuria Musculoskeletal: Musculoskeletal: Reports as per HPI Integumentary/Breasts: Skin/Breast: Reports as per HPI Neurologic: Denies dizziness and Denies headache(s) Allergic/Immunologic: Allergic/Immunologic: Denies throat swelling and Denies wheezing PMFSH Past Medical History Medical History Anxiety IUD (intrauterine device) in place Surgical History Surgical History Status post total left knee replacement (~12/12/23) S/P medial meniscectomy of left knee [place] teeth extracted Family History Family History Grandparent Diabetes mellitus Father Hypertension Sibling Hypertension Mother Carcinoma of colon Social History Social History Smoking status: Never smoker Second hand tobacco smoke exposure: No Additional smoking assessment comments: PT DENIES ALL FORMS OF TOBACCO USE Alcohol intake: current Drinks per week: 3 Alcohol use details: WINE Substance use: never Substance use type: does not use Do You Feel Safe in your Home?: Yes Lack of Transportation: No Lack of Food: Never True Current Housing: I Have Housing Concerned About Future Housing: No Difficulty Paying Gas/Electric Bills: No Difficulty Paying for Meds: No Currently Unemployed: No Education: Bachelor's Degree Difficulty w/ Childcare or Family Care: No Living arrangements: with family Occupation/Education: occupation Gender identity (if verbalized by the patient): Female Sexual Orientation (if Verbalized by the Patient): Straight or Heterosexual Spiritual care concerns: Yes Agree to blood products: Yes Meds Home Medications and Allergies Home Medications ?Medication ?Instructions ?Recorded ?Confirmed ?Type escitalopram oxalate 10 mg tablet 10 mg PO DAILY 07/14/23 01/13/25 History levonorgestrel (Mirena) 1 device intrauterine ONCE #1 ea 12/06/24 01/13/25 Rx Allergies Allergy/AdvReac Type Severity Reaction Status Date / Time No Known Allergies Allergy Verified 01/13/25 07:01 Vital Signs Vital Signs - 24 hr 01/13/25 07:02 Temperature 97.3 F L Pulse Rate 70 Respiratory Rate 20 Blood Pressure 153/86 H Pulse Oximetry 99 Oxygen Delivery Room Air Exam Const: General: no acute distress and alert Orientation/consciousness: patient oriented x3 HENMT: Head: normocephalic and atraumatic Ears: hearing grossly normal bilaterally Face/Nose/Sinus: Normal nares present Mouth: Yes Normal oral and palatal mucosa present Eyes: Periorbital: periorbital findings normal Sclera: sclerae normal EOM: EOMs intact bilaterally Neck: Neck: normal visual inspection, no lymphadenopathy and trachea midline Chest: Chest palpation & inspection: normal inspection of the chest Resp: Effort & Inspection: normal respiratory effort Auscultation: clear to auscultation bilaterally Cardio: Jugular venous distension: no JVD Rate: regular rate Rhythm: regular rhythm Heart sounds: S1 normal heart sound present and S2 normal heart sound present Peripheral pulses: Peripheral pulses 2+ throughout GI: Inspection: normal to inspection GI Palp: Yes Soft to palpation, No Tenderness to palpation present (GI), No Guarding due to palpation present (GI) and No Rebound tenderness present Percussion: Yes normal to percussion Auscultation: normal bowel sounds : General: Yes no CVA tenderness Back/Spine/Pelvis: Back: no CVA tenderness Neuro: General: patient oriented x3, no focal motor deficits and CN's II-XI intact bilaterally Cognition (Neuro): normal cognition Speech: normal speech Motor exam (neuro): 5/5 motor strength present throughout Extrem: General: capillary refill normal and no clubbing, cyanosis or edema Assessment and Plan Assessment and plan (1) Family hx of colon cancer: Code(s): Z80.0 - Family history of malignant neoplasm of digestive organs Status: Acute Assessment and Plan: I have recommended colonoscopy. I have discussed the procedure, risks, benefits, and alternatives. Questions were answered. Patient is agreeable to proceed.
[2025-01-13 08:23] VITALS: BP 118/74; PULSE 71; RESP 18; O2SAT 96
[2025-01-13 08:33] VITALS: BP 113/75; PULSE 60; RESP 21; O2SAT 97
[2025-01-13 08:43] VITALS: BP 132/90; PULSE 57; RESP 21; O2SAT 100
== END 2025-01-13 08:52 | disposition home or self-care (01) ==
PROVIDERS: PCP Family Medicine; Visit Provider Surgery
PROC: 0DJD8ZZ Inspection of Lower Intestinal Tract, Via Natural or Artificial Opening Endoscopic (ICD-10-PCS; CPT 45378; principal; 2025-01-13 08:00)
DX: Z12.11 Encounter for screening for malignant neoplasm of colon (principal); K62.1 Rectal polyp; K57.30 Diverticulosis of large intestine without perforation or abscess without bleeding; Z80.0 Family history of malignant neoplasm of digestive organs
CPT/HCPCS: 45380; 88305; J2003; J2704; J7120

== ENCOUNTER 2025-02-05 10:30 | Outpatient (CLI) | payer OTHER, SELFPAY ==
--- OUTSIDE RECORDS SUMMARY | 2025-02-05 12:05 | XMS_ITS | Data Portability ---
Author Organization [place] [facility], Main Office Address [address] [place] [address] Assessment Encounter Date Assessment Date Assessment LastModified [...] pain with any manipulation. Her x-rays show [id number] arthritis. She would like to have a [...] DO Not Attach Compendium, Do Not Delete/merge, [id number] 16:08:15 Surgeries None recorded. Imaging XR, knee 2022 023 josh 158 [facility] [place], [address], [place], [address], 16:48:11 Medication Orders Kenalog 10 mg/mL suspension for injection 2022 023 [facility] #[id number], [address], [phone], 3 16:19:13 ropivacaine (PF) 5 mg/mL (0.5 %) injection solution 2022 023 [facility] #[id number], [address], [phone], 3 16:19:13 prednisone 10 mg tablets in a dose pack 2022 023 [facility] #[id number], [address], [phone], 16:33:20 Patient TargetsNo targets recorded. Patient InstructionsNo instructions recorded. Reason for Referral None Reported. Results Created Date Observation Date Name Description Value Unit Range Abnormal Flag Note LastModifiedBy Organization Detail LastModifiedTime 04/18/20 23 XR, knee No observ ation record ed. per [facility] [place] [address], [place], [address], 04/18/2023 16:48:11 Result Notes None recorded. Problems Name Problem SNOMED Code Status Onset Date Resolution Date Notes Provider Name and Address Organization Details Recorded Time Osteoarthr itis 074534496 Active Not Available [employer] 14:10:26 Pain of bilateral knee joints 3823038628354 04 Active 2022 Becca Aguirre CNA null, [place] [facility] 15:29:13 Problem Notes None recorded. Procedures Surgical History Date Name Laterality Status Provider Name and Address Organization Details Recorded Time Ortho - Cortisone Injection completed Behzad Coates MD [address], [place], [address], [facility] [employer] 04/18/2023 16:40:48 Knee Surgery completed Becca Aguirre CNA [place] [facility] 04/18/2023 15:28:50 Imaging Results Imaging Date Name Status LastModified by Organiz ation Details LastModified Time 04/18/2023 XR, knee completed per [facility] [place] [address], [place], [address], 04/18/2023 16:48:11 Procedure Notes None recorded. Medical [...] 40 mg by injection route. 2022 active [facility]: 0003- [phone]- 20 Not Available Not Available [...] administe red by the provider 04/18 completed [facility]: [phone]- [phone]- [phone] Not Available Not Available Not Available ropivacaine (PF) 5 mg/mL (0.5 %) injection solution Take 40 mg by injection route. 2022 active [facility] [phone] -[phone] Not Available Not Available Not Available Vitals Date Recorded Body height Body mass index (BMI) Body weight Provider Name and Address Organization Details Last Updated DateTime 04/18/2023 172.72 cm 28 kg/m2 76052 g Becca Aguirre CNA [facility] 04/18/2023 15:23:51 Social History Question Answer Notes LastModified by Organizat ion Details LastModified Time Tobacco Smoking Status Never Smoker Becca Aguirre CNA null [facility] 04/18/2023 15:28:17 What Is Your Level Of [...] SNOMED-CT Code Diagnosis ICD10 Code Diagnosis Note [id number] Behzad Coates MD [facility] [place] [address] [place] [address] 04/18/2023 15:07:59 04/24/2023 12:45:21 Pain of bilateral knee joints [id number] 54297 M25.561 M25.562 Health Concerns Section Related Observation LastModified by Organization Detai ls LastModified Time None Recorded Concern Status LastModified by Organization Details LastModified Time None Recorded Advance Directives Directive None Recorded Payers Encounter Date Sequence Insurance Name Policy Number Policy Lee Covered Member ID Lee Member ID Guarantor Name 04/18/2023 1 [facility] [id number] Melanie K Hemanth [id number] Melanie Saxena Notes Date Note Type [...] in bowel/bladder habits;swelling;war mth;grinding Behzad Coates MD [address] [place] [address], [phone], [facility] [place] [facility] 04/18/2023 16:48:15 OBGyn Episode No OBEpisode recorded.
--- OUTSIDE RECORDS SUMMARY | 2025-02-05 12:05 | XMS_ITS | Encounter Summary ---
Author Organization [facility] Address [address] [place] [address] Care Team Providers Care Lamination Spinner Name Role Phone Unavailable Primary Care Provider Unavailabl e Encounter Details Date Type Department Care Team (Late st Contact Info) Description 01/03/2025 Lab Requisition [facility] - DermPath Lab [address] [phone] Blanca Nunes MD [address] [place] [address] [place] [address] Basal cell carcinoma of skin [...] Comments DERMATOPATHOLOGY Routine 01/03/2025 12:0 0 AM DEVELOPMENT SPEC Basal cell carcinoma of skin of right lower limb, including hip documented in this encounter Results * DERMATOPATHOLOGY (01/03/2025 12:00 AM DEVELOPMENT SPEC) Case Report Dermatopathology Report Case: [id number] Authorizing Provider: Blanca Nunes MD Collected: 01/03/2025 12:00 AM Ordering Location: [facility] - Received: 01/06/2025 01:43 PM DermPath Lab Pathologist: Lainey Cabrera MD Specimen: Skin, right anterior thigh 2:08 PM [facility] DERMATOPATHOLOGY LABORATORY Final Diagnosis Specimen A. SKIN, right anterior thigh: DERMAL SCAR RESIDUAL BASAL CELL CARCINOMA NOT IDENTIFIED (L90.5) 2:08 PM [facility] DERMATOPATHOLOGY LABORATORY Clinical History BCC Check margins/prior biopsy 2:08 PM [facility] DERMATOPATHOLOGY LABORATORY Gross Description Specimen A: Received is one formalin filled container labeled with the patient's name and designated right anterior thigh. The specimen consists of a non-oriented ellipse of skin measuring 14m26b6 mm. The epidermal surface is unremarkable. The margin is inked green. The 12 o'clock and 6 o'clock tips are submitted in cassette 1. The remainder of the ellipse is serially sectioned and submitted in cassette 2-3. Jar 0. 2:08 PM [facility] DERMATOPATHOLOGY LABORATORY Microscopic Description Specimen A. SKIN, right anterior thigh: There are fibroblasts and collagen bundles oriented parallel to the skin surface. There are elongated blood vessels, some of which are oriented perpendicular to the skin surface. No basal cell carcinoma is identified. 2:08 PM [facility] DERMATOPATHOLOGY LABORATORY Disclaimer An external and internal [...] purposes. Billing Codes Specimen Charges Stain Charges 87990 1 2:08 PM [facility] DERMATOPATHOLOGY LABORATORY Embedded Images 2:08 PM [facility] DERMATOPATHOLOGY LABORATORY Pathology/Cytolog y TISSUE SPECIMEN FROM SKIN / Unknown 01/03/2025 01/06/2025 1:43 PM DEVELOPMENT SPEC Blanca Nunes MD LAB - PATHOLOGY/CYTO LOGY ORDERABLES DERMATOPATHOLOGY LABORATORY [facility] - Department of Dermatology [facility] Medicine [address] [place] [address], [address] [phone] documented in this encounter Visit Diagnoses Diagnosis Basal cell carcinoma of skin of right lower limb, including hip Basal cell carcinoma of skin of lower limb, including hip documented in this encounter
--- OUTSIDE RECORDS SUMMARY | 2025-02-05 12:05 | XMS_ITS | Encounter Summary ---
Author Organization [facility] Address [address] [place] [address] Care Team Providers Care Certified Fraud Examiner Name Role Phone Unavailable Primary Care Provider Unavailabl e Encounter Details Date Type Department Care Team (Late st Contact Info) Description 09/24/2024 Lab Requisition [facility] - DermPath Lab [address] [place] [phone] Abraham Miller MD [address] [place] [address] Social History Tobacco Use Types Packs/Day Years [...] Diagnosis Comments DERMATOPATHOLOGY Routine 09/23/2024 3:33 AM DRY CELL SEALER documented in this encounter Results * DERMATOPATHOLOGY (09/23/2024 3:33 AM DRY CELL SEALER) Case Report Dermatopathology Report Case: [id number] Authorizing Provider: Abraham Miller MD Collected: 09/23/2024 03:33 AM Ordering Location: [facility] - Received: 09/24/2024 03:14 PM DermPath Lab Pathologist: Lainey Cabrera MD Specimens: A) - Skin, right superior lateral chest B) - Skin, right lateral side of chest C) - Skin, right mid matt thigh 3:49 PM [facility] DERMATOPATHOLOGY LABORATORY Final Diagnosis Specimen A. 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 SKIN, right lateral side of chest: INTRADERMAL MELANOCYTIC NEVUS (D22.5) Specimen C. SKIN, right mid matt thigh: BASAL CELL CARCINOMA, NODULAR TYPE (C44.712) 4 3:49 PM [facility] DERMATOPATHOLOGY LABORATORY Clinical History A: R/O dysplastic nevus. Check margins B: R/O inflamed angioma vs inflamed nevus C: R/O BCC vs SCC 3:49 PM [facility] DERMATOPATHOLOGY LABORATORY Gross Description Specimen A: [...] specimen consists of a shave biopsy measuring 72a92a2 mm. Jar 0. 3:49 PM [facility] DERMATOPATHOLOGY LABORATORY Microscopic Description Specimen [...] cytoplasmic ratio and peripheral palisading. 3:49 PM [facility] DERMATOPATHOLOGY LABORATORY Disclaimer An external and internal positive and negative controls are appropriate for the histochemical, immunohistochemical and immunofluorescence stain(s) in this case (if any), except where stated explicitly. The performance characteristics of the stain(s) cited in this report were developed and its performance characteristic determined by the Dermatopathology Laboratory at [facility], directed by Dr. Maude Cabrera. These tests need not be, and therefore are not, approved by the [place] Food and Drug Administration. The tests are used for clinical purposes. Billing Codes Specimen Charges Stain Charges 71250 56680 30244 1 1 1 4 3:49 PM DRY CELL SEALER DERMATOPATHOLOGY LABORATORY Embedded Images 3:49 PM DRY CELL SEALER DERMATOPATHOLOGY LABORATORY Pathology/Cytology TISSUE SPECIMEN FROM SKIN / Unknown 09/23/2024 3:33 AM DRY CELL SEALER 09/24/2024 3:14 PM DRY CELL SEALER Miscellaneous samples (specimen) TISSUE SPECIMEN FROM SKIN / Unknown 09/23/2024 3:33 AM DRY CELL SEALER 09/24/2024 3:14 PM DRY CELL SEALER Miscellaneous samples (specimen) TISSUE SPECIMEN FROM SKIN / Unknown 09/23/2024 3:33 AM DRY CELL SEALER 09/24/2024 3:14 PM DRY CELL SEALER Abraham Miller MD LAB - PATHOLOGY/CYTO LOGY ORDERABLES DERMATOPATHOLOGY LABORATORY [facility] - Department of Dermatology [facility] Medicine [address] [place] [address], [address] [phone] documented in this encounter Visit Diagnoses Not on filedocumented in this encounter
--- OUTSIDE RECORDS SUMMARY | 2025-02-05 12:05 | XMS_ITS | Clinical Summary ---
Author Organization [facility] Address [address] [place] [address] Care Team Providers Care Repairer Helper Name Role Phone Unavailable Primary Care Provider Unavailabl e Source Comments [facility],non-owned Affiliates and Associated Physician Practices is amultiple site organization consisting of ambulatory clinics and hospital sitesin [place], [place], [place] and [place]. This disclosure is being madepursuant to the Care Everywhere program and may not contain all information available regarding this patient. Last updated 18.[facility] [place] [employer] Allergies No known active allergies Medications * [...] Department Care Team Description 01/03/2025 Lab Requisition [facility] - DermPath Lab [address] [facility] [place] [address] Blanca Nunes MD Basal cell carcinoma of [...] to complete this topic MENINGOCOCCAL (Group B) VACC INE SHARED DECISION-MAKING Aged Out No longer eligibl e based on patient's age to complete this topic MENINGOCOCCAL GROUPS A/C/Y/W VACCINE Aged Out No longer eligible b ased on patient's age to complete this topic Procedures Procedure Name Priority Date/Time Associated Diagnosis Comments DERMATOPATHOLOGY Routine 01/03/2025 12:0 0 AM INTERSTATE BUS DRIVER Basal cell carcinoma of skin of right lower limb, including hip from Last 3 Months Results * DERMATOPATHOLOGY (01/03/2025 12:00 AM [facility]) Case Report Dermatopathology Report Case: [id number] Authorizing Provider: Blanca Nunes MD Collected: 01/03/2025 12:00 AM Ordering Location: [facility] - Received: 01/06/2025 01:43 PM DermPath Lab Pathologist: Lainey Cabrera MD Specimen: Skin, right anterior thigh 2:08 PM [facility] DERMATOPATHOLOGY LABORATORY Final Diagnosis Specimen A. SKIN, right anterior thigh: DERMAL SCAR RESIDUAL BASAL CELL CARCINOMA NOT IDENTIFIED (L90.5) 2:08 PM [facility] DERMATOPATHOLOGY LABORATORY Clinical History BCC Check margins/prior biopsy 2:08 PM [facility] DERMATOPATHOLOGY LABORATORY Gross Description Specimen A: Received is one formalin filled container labeled with the patient's name and designated right anterior thigh. The specimen consists of a non-oriented ellipse of skin measuring 35e65k8 mm. The epidermal surface is unremarkable. The margin is inked green. The 12 o'clock and 6 o'clock tips are submitted in cassette 1. The remainder of the ellipse is serially sectioned and submitted in cassette 2-3. Jar 0. 2:08 PM [facility] DERMATOPATHOLOGY LABORATORY Microscopic Description Specimen A. SKIN, right anterior thigh: There are fibroblasts and collagen bundles oriented parallel to the skin surface. There are elongated blood vessels, some of which are oriented perpendicular to the skin surface. No basal cell carcinoma is identified. 2:08 PM [facility] DERMATOPATHOLOGY LABORATORY Disclaimer An external and internal positive and negative controls are appropriate for the histochemical, immunohistochemical and immunofluorescence stain(s) in this case (if any), except where stated explicitly. The performance characteristics of the stain(s) cited in this report were developed and its performance characteristic determined by the Dermatopathology Laboratory at [facility], directed by Dr. Maude Cabrera. These tests need not be, and therefore are not, approved by the [place] Food and Drug Administration. The tests are used for clinical purposes. Billing Codes Specimen Charges Stain Charges 70702 1 5 2:08 PM INTERSTATE BUS DRIVER DERMATOPATHOLOGY LABORATORY Embedded Images 5 2:08 PM INTERSTATE BUS DRIVER DERMATOPATHOLOGY LABORATORY Pathology/Cytolog y TISSUE SPECIMEN FROM SKIN / Unknown 01/03/2025 01/06/2025 1:43 PM INTERSTATE BUS DRIVER Blanca Nunes MD LAB - PATHOLOGY/CYTO LOGY ORDERABLES DERMATOPATHOLOGY LABORATORY [facility] - Department of Dermatology [facility] Medicine [address] [place] [address], [address] [phone] from Last 3 Months
--- OUTSIDE RECORDS SUMMARY | 2025-02-05 12:05 | XMS_ITS | Clinical Summary ---
Author Organization [facility] Address [address] [place] [address] Care Team Providers Care Caustic Mixer Name Role Phone Gloria Abreu MD Primary Care Provider [phone] Mel Daniel MD Unavailable [phone] Allergies No known active allergies Medications No [...] Read Routine (OP Routine) 10/11/2024 3:47 PM OR SCRUB TECH Screening mammogram, encounter for from Last 3 Months or Most Recently Relevant to Health Maintenance Results * Screening Mammogram Bilateral W Laina (10/11/2024 3:47 PM OR SCRUB TECH) Anatomical Region Laterality Modality Breast Bilateral Mammography Narrative 10/14/2024 10:28 AM OR SCRUB TECH Mammogram Technique: Bilateral Digital Breast Tomosynthesis, Bilateral C-view 2D Screening mammogram. Views obtained: bilateral craniocaudal and bilateral mediolateral oblique. Computer Aided Detection was performed. Mammogram Findings: The present examination has been compared to prior imaging studies performed at [facility] on 05/12/2021, 08/17/2022 and 10/10/2023. There [...] compared to prior imaging studies performed at [facility] on 05/12/2021, 08/17/2022 and 10/10/2023. There [...] Most Recently Relevant to Health Maintenance Insurance [employer] OPEN ACCESS [employer] OPEN ACCESS [employer] OOS Care Teams Caustic Mixer Relationship Specialty Start Date End Date Gloria Abreu MD PCP - General Family Medicine 06/28/22 Mel Daniel MD [address] [address] Referring Physician Gynecology 08/14/24
--- OUTSIDE RECORDS SUMMARY | 2025-02-05 12:05 | XMS_ITS | Encounter Summary ---
Author Organization [facility] Address [address] [facility] [place] [address] Care Team Providers Care Multiple Wire Sawyer Name Role Phone Unavailable Primary Care Provider Unavailabl e Encounter Details Date Type Department Care Team (Late st Contact Info) Description 06/03/2020 Lab Requisition [facility] DermPath Lab [address] [place] [address] Abraham Miller MD [address] [place] [address] Social History Tobacco Use Types Packs/Day Years [...] AM CDT) Case Report Dermatopathology Report Case: [id number] Authorizing Provider: Abraham Miller MD Collected: 06/02/2020 12:00 AM Ordering Location: [facility] DermPath Lab Received: 06/03/2020 12:58 PM Pathologist: [...] determined by the Dermatopathology Laboratory at [facility], directed by Dr. Maude Cabrera. These tests need not be, and therefore are not, approved by the [place] Food and Drug Administration. The tests are used for clinical purposes. Billing Codes Specimen Charges Stain Charges 99246 1 0 1:46 PM CDT DERMATOPATHOLOGY LABORATORY Embedded Images 0 1:46 PM CDT DERMATOPATHOLOGY LABORATORY Pathology/Cytolog y TISSUE SPECIMEN FROM SKIN / Unknown 06/02/2020 06/03/2020 12:58 PM CDT Abraham Miller MD LAB - PATHOLOGY/CYTO LOGY ORDERABLES DERMATOPATHOLOGY LABORATORY [facility] - Department of Dermatology Information Systems Operator [place] [address], [facility] [phone] documented in this encounter Visit Diagnoses Not on filedocumented in this encounter
--- OUTSIDE RECORDS SUMMARY | 2025-02-05 12:05 | XMS_ITS | Encounter Summary ---
Author Organization [facility] Address [address] [place] [address] Care Team Providers Care Friction Paint Machine Tender Name Role Phone Unavailable Primary Care Provider Unavailabl e Encounter Details Date Type Department Care Team (Late st Contact Info) Description 08/10/2022 Lab Requisition [facility] DermPath Lab [address] [place] [address] Abraham Miller MD [address] [place] [address] Social History Tobacco Use Types Packs/Day Years [...] AM CDT) Case Report Dermatopathology Report Case: [id number] Authorizing Provider: Abraham Miller MD Collected: 08/09/2022 12:00 AM Ordering Location: [facility] DermPath Lab Received: 08/10/2022 04:16 PM Pathologist: [...] 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 Jar 0. 2 3:52 PM [facility] DERMATOPATHOLOGY LABORATORY Microscopic Description Specimen A. SKIN, [...] widely spaced endothelial cells. 2 3:52 PM CDT DERMATOPATHOLOGY LABORATORY Disclaimer An external and internal positive and negative controls are appropriate for the histochemical, immunohistochemical and immunofluorescence stain(s) in this case (if any), except where stated explicitly. The performance characteristics of the stain(s) cited in this report were developed and its performance characteristic determined by the Dermatopathology Laboratory at [facility], directed by Dr. Maude Cabrera. These tests need not be, and therefore are not, approved by the [place] Food and Drug Administration. The tests are used for clinical purposes. Billing Codes Specimen Charges Stain Charges 07781 71888 1 1 90829 88258 46927 1 1 1 2 3:52 PM CDT DERMATOPATHOLOGY LABORATORY Embedded Images 2 3:52 PM CDT DERMATOPATHOLOGY LABORATORY Pathology/Cytology TISSUE SPECIMEN FROM SKIN / Unknown 08/09/2022 08/10/2022 4:16 PM CDT Miscellaneous samples (specimen) TISSUE SPECIMEN FROM SKIN / Unknown 08/09/2022 08/10/2022 4:16 PM CDT Abraham Miller MD LAB - PATHOLOGY/CYTO LOGY ORDERABLES DERMATOPATHOLOGY LABORATORY [facility]erm[facility]ology [facility] Medicine [address] [place] [address], [address] [phone] documented in this encounter Visit Diagnoses Not on filedocumented in this encounter
--- OUTSIDE RECORDS SUMMARY | 2025-02-05 12:05 | XMS_ITS | Referral Summary ---
Author Organization [facility] Address [address] [place] [address] Care Team Providers Care Web Operations Manager Name Role Phone Gloria Abreu MD Primary Care Provider [phone] Mel Daniel MD Unavailable [phone] Allergies No known active allergies Medications No [...] Read Routine (OP Routine) 10/11/2024 3:47 PM BUSINESS SYSTEMS DEVELOPER Screening mammogram, encounter for from Last 3 Months or Most Recently Relevant to Health Maintenance Results * Screening Mammogram Bilateral W Laina (10/11/2024 3:47 PM BUSINESS SYSTEMS DEVELOPER) Anatomical Region Laterality Modality Breast Bilateral Mammography Narrative 10/14/2024 10:28 AM BUSINESS SYSTEMS DEVELOPER Mammogram Technique: Bilateral Digital Breast Tomosynthesis, Bilateral C-view 2D Screening mammogram. Views obtained: bilateral craniocaudal and bilateral mediolateral oblique. Computer Aided Detection was performed. Mammogram Findings: The present examination has been compared to prior imaging studies performed at [facility] on 05/12/2021, 08/17/2022 and 10/10/2023. There [...] compared to prior imaging studies performed at [facility] on 05/12/2021, 08/17/2022 and 10/10/2023. There [...] OPEN ACCESS [facility] OOS Care Teams Web Operations Manager Relationship Specialty Start Date End Date Gloria Abreu MD PCP - General Family Medicine 06/28/22 Mel Daniel MD [address] [place] [address] Referring Physician Gynecology 08/14/24
[2025-02-06 16:29] LABS: Alternaria alternata IgE <0.10 kU/L; Alternaria alternata IgE Class 0; Aspergillus fumigatus IgE <0.10 kU/L; Bermuda Grass (G2) IgE <0.10 kU/L; Bermuda Grass (G2) IgE Class 0; Cat Dander IgE <0.10 kU/L; Cat Dander IgE Class 0; Cladosporium herbarum IgE <0.10 kU/L; Cladosporium herbarum IgE Clas 0; Cockroach IgE 0.14 kU/L; Cockroach IgE Clas 0/1; Common Ragweed IgE Class 0; Cottonwood IgE <0.10 kU/L; Dermatophagoides Farinae Class 0; Dermatophagoides Pterony Class 0; Dermatophagoides Pteronyssinus <0.10 kU/L; Dog Dander IgE <0.10 kU/L; Elm (T8) IgE <0.10 kU/L; Elm (T8) IgE Class 0; Hickory/Pecan IgE <0.10 kU/L; Hickory/Pecan IgE Class 0; Immunoglobulin E 70 kU/L (<OR=114); Maple Box Elder IgE Class 0; Mountain Cedar IgE <0.10 kU/L; Mountain Cedar IgE Class 0; Mouse Urine Proteins IgE <0.10 kU/L; Mouse Urine Proteins IgE Class 0; Oak IgE <0.10 kU/L; Peniciliium notatum class 0; Penicillium notatum (M1) IgE <0.10 kU/L; Rough Marsh <0.10 kU/L; Rough Marsh Elder Class 0; Rough Pigweed (W14) IgE <0.10 kU/L; Rough Pigweed (W14) IgE Class 0; Russian Thistle <0.10 kU/L; Sycamore IgE <0.10 kU/L; Sycamore IgE Class 0; Timothy Grass IgE <0.10 kU/L; Timothy Grass IgE Class 0; Walnut Tree IgE <0.10 kU/L; Walnut Tree IgE Class 0; White Ash IgE Class 0; White Mulberry IgE <0.10 kU/L; White Mulberry IgE Class 0
== END 2025-02-05 10:31 | disposition home or self-care (01) ==
LOC: ANHLAB 10:33
PROVIDERS: PCP Family Medicine; Visit Provider Physician Assistant
DX: R05.9 Cough, unspecified (principal); R06.02 Shortness of breath
CPT/HCPCS: 36415; 82785; 86003

== ENCOUNTER 2025-02-21 09:12 | Outpatient (CLI) | payer OTHER, SELFPAY ==
--- NOTE | ~2025-02-21 | CT_ITS ---
CT Scan of the Chest without Contrast: Clinical Indication: Shortness of breath Technique: Contiguous sections were acquired throughout the chest without intravenous contrast. Dose reduction technique was used on this scan by utilizing automated exposure control and iterative recon struction technique. The dose-length product (DLP) was 302.46 mGy-cm. Findings: There is no evidence of any significant mediastinal, hilar or axillary lymphadenopathy. The mediastin al soft tissues appear normal. There is no evidence of pleural or pericardial effusion. The lungs are clear. No pulmonary nodules or infiltrates are noted. Images through the upper abdomen reveal no abnormalities. Impression: No significant abnormalities seen. Reviewed, dictated and finalized at location . Impression: No significant abnormalities seen.
== END 2025-02-21 09:13 | disposition home or self-care (01) ==
LOC: MICIMG 09:13
PROVIDERS: PCP Family Medicine; Visit Provider Physician Assistant
DX: R05.3 Chronic cough (principal); U09.9 Post COVID-19 condition, unspecified
CPT/HCPCS: 71250

== ENCOUNTER 2025-02-24 08:32 | Outpatient (CLI) | payer OTHER, SELFPAY ==
--- OUTSIDE RECORDS SUMMARY | 2025-02-24 08:55 | XMS_ITS | Data Portability ---
Author Organization [facility], Main Office Address [address] [place] [address] Assessment Encounter Date Assessment Date Assessment LastModified [...] pain with any manipulation. Her x-rays show [id number] arthritis. She would like to have a [...] DO Not Attach Compendium, Do Not Delete/merge, [address] 16:08:15 Surgeries None recorded. Imaging XR, knee 2022 023 josh 158 [facility] [place], [address], [place], [address], 16:48:11 Medication Orders Kenalog 10 mg/mL suspension for injection 2022 0[facility] #[id number], [address], [phone], 3 16:19:13 ropivacaine (PF) 5 mg/mL (0.5 %) injection solution 2022 023 [facility] Manny [facility] #95326, [address], [id number], 3 16:19:13 prednisone 10 mg tablets in a dose pack 2022 023 [facility] M[facility] #91949, [address], [phone], 16:33:20 Patient TargetsNo targets recorded. Patient InstructionsNo instructions recorded. Reason for Referral None Reported. Results Created Date Observation Date Name Description Value Unit Range Abnormal Flag Note LastModifiedBy Organization Detail LastModifiedTime 04/18/20 23 XR, knee No observ ation record ed. per [facility] [place] [address] [facility] [address], [place], [address], 04/18/2023 16:48:11 Result Notes None recorded. Problems Name Problem SNOMED Code Status Onset Date Resolution Date Notes Provider Name and Address Organization Details Recorded Time Osteoarthr itis 122769428 Active Not Available [employer] 14:10:26 Pain of bilateral knee joints 3240708970027 04 Active 2022 Becca Aguirre CNA null, [place] [employer] [facility] 15:29:13 Problem Notes None recorded. Procedures Surgical History Date Name Laterality Status Provider Name and Address Organization Details Recorded Time Ortho - Cortisone Injection completed Behzad Coates MD [address] [facility] [address], [place], [address], [facility] [employer] 04/18/2023 16:40:48 Knee Surgery completed Bceca Aguirre CNA [place] [facility] 04/18/2023 15:28:50 Imaging Results Imaging Date Name Status LastModified by Organiz ation Details LastModified Time 04/18/2023 XR, knee completed per [facility] [place] [address], [place], [address], 04/18/2023 16:48:11 Procedure Notes None recorded. Medical [...] 2022 active [facility] [phone] Not Available Not Available Not Available Vitals Date Recorded Body height Body mass index (BMI) Body weight Provider Name and Address Organization Details Last Updated DateTime 04/18/2023 172.72 cm 28 kg/m2 24795 g Becca Aguirre CNA [facility] 04/18/2023 15:23:51 Social History Question Answer Notes LastModified by Organizat ion Details LastModified Time Tobacco Smoking Status Never Smoker Becca Aguirre CNA null [facility] 04/18/2023 15:28:17 What Is Your Level Of [...] SNOMED-CT Code Diagnosis ICD10 Code Diagnosis Note [id number] Behzad Coates MD [facility] [place] [address] [place] [address] 04/18/2023 15:07:59 04/24/2023 12:45:21 Pain of bilateral knee joints 6847200196 49072 M25.561 M25.562 Health Concerns Section Related Observation LastModified by Organization Detai ls LastModified Time None Recorded Concern Status LastModified by Organization Details LastModified Time None Recorded Advance Directives Directive None Recorded Payers Encounter Date Sequence Insurance Name Policy Number Policy Lee Covered Member ID Lee Member ID Guarantor Name 04/18/2023 1 [facility] [id number] Melanie K Hemanth [id number] Melanie Saxena Notes Date Note Type [...] in bowel/bladder habits;swelling;war mth;grinding Behzad Coates MD [address] [place] [address], [address], [facility] 04/18/2023 16:48:15 OBGyn Episode No OBEpisode recorded.
--- OUTSIDE RECORDS SUMMARY | 2025-02-24 08:55 | XMS_ITS | Referral Summary ---
Author Organization [facility] Address [address] [place] [address] Care Team Providers Care Air Pollution Specialist Name Role Phone Gloria Abreu MD Primary Care Provider [phone] Mel Daniel MD Unavailable [phone] Allergies No known active allergies Medications No [...] Read Routine (OP Routine) 10/11/2024 3:47 PM SHOOTER'S HELPER Screening mammogram, encounter for from Last 3 Months or Most Recently Relevant to Health Maintenance Results * Screening Mammogram Bilateral W Laina (10/11/2024 3:47 PM SHOOTER'S HELPER) Anatomical Region Laterality Modality Breast Bilateral Mammography Narrative 10/14/2024 10:28 AM SHOOTER'S HELPER Mammogram Technique: Bilateral Digital Breast Tomosynthesis, Bilateral C-view 2D Screening mammogram. Views obtained: bilateral craniocaudal and bilateral mediolateral oblique. Computer Aided Detection was performed. Mammogram Findings: The present examination has been compared to prior imaging studies performed at [facility] on 05/12/2021, 08/17/2022 and 10/10/2023. There [...] compared to prior imaging studies performed at [facility] on 05/12/2021, 08/17/2022 and 10/10/2023. There [...] Insurance [employer] OPEN ACCESS NA OPEN ACCESS [facility] OOS Care Teams Air Pollution Specialist Relationship Specialty Start Date End Date Gloria Abreu MD PCP - General Family Medicine 06/28/22 Mel Daniel MD [address] [place] [address] Referring Physician Gynecology 08/14/24
--- OUTSIDE RECORDS SUMMARY | 2025-02-24 08:55 | XMS_ITS | Clinical Summary ---
Author Organization [facility] Address [address] [place] [address] Care Team Providers Care Edger Hand Name Role Phone Gloria Abreu MD Primary Care Provider [phone] Mel Daniel MD Unavailable [phone] Allergies No known active allergies Medications No [...] Td or Tdap) 10/17/2021 10/17/2011 Influenza Vaccine (Season Ended) 2025 Breast Cancer Screening-Mammogram 10/11/2025 10/11/2024, 10/10/2023, 08/17/2022, Additional history exists Pneumococcal vaccine <65 Aged Out No longer eligible based on patient's age to complete this topic Procedures Procedure Name Priority Date/Time Associated Diagnosis Comments SCREENING MAMMOGRAM BILATERAL W LAINA Schedule Routine, Read Routine (OP Routine) 10/11/2024 3:47 PM LEAD TINNER Screening mammogram, encounter for from Last 3 Months or Most Recently Relevant to Health Maintenance Results * Screening Mammogram Bilateral W Laina (10/11/2024 3:47 PM LEAD TINNER) Anatomical Region Laterality Modality Breast Bilateral Mammography Narrative 10/14/2024 10:28 AM LEAD TINNER Mammogram Technique: Bilateral Digital Breast Tomosynthesis, Bilateral C-view 2D Screening mammogram. Views obtained: bilateral craniocaudal and bilateral mediolateral oblique. Computer Aided Detection was performed. Mammogram Findings: The present examination has been compared to prior imaging studies performed at [facility] on 05/12/2021, 08/17/2022 and 10/10/2023. There are [...] compared to prior imaging studies performed at [facility] on 05/12/2021, 08/17/2022 and 10/10/2023. There are [...] Most Recently Relevant to Health Maintenance Insurance [employer] OPEN ACCESS [employer] OPEN ACCESS BLUE TRADITIONAL OOS Care Teams Edger Hand Relationship Specialty Start Date End Date Gloria Abreu MD PCP - General Family Medicine 06/28/22 Mel Daniel MD [address] [address] Referring Physician Gynecology 08/14/24
--- OUTSIDE RECORDS SUMMARY | 2025-02-24 08:55 | XMS_ITS | Encounter Summary ---
Author Organization [facility] Address [address] [facility] [place] [place] [address] Care Team Providers Care Dopeman Name Role Phone Unavailable Primary Care Provider Unavailabl e Encounter Details Date Type Department Care Team (Late st Contact Info) Description 06/03/2020 Lab Requisition [facility] DermPath Lab [address] [place] [id number] Abraham Miller MD [address] [place] [address] Social History Tobacco Use Types Packs/Day Years [...] AM CDT) Case Report Dermatopathology Report Case: [id number] Authorizing Provider: Abraham Miller MD Collected: 06/02/2020 [...] characteristic determined by the Dermatopathology Laboratory at [facility], directed by Dr. Maude Cabrera. These tests need not be, and therefore are not, approved by the [place] Food and Drug Administration. The tests are used for clinical purposes. Billing Codes Specimen Charges Stain Charges 61358 1 0 1:46 PM CDT DERMATOPATHOLOGY LABORATORY Embedded Images 0 1:46 PM CDT DERMATOPATHOLOGY LABORATORY Pathology/Cytolog y TISSUE SPECIMEN FROM SKIN / Unknown 06/02/2020 06/03/2020 12:58 PM CDT Abraham Miller MD LAB - PATHOLOGY/CYTO LOGY ORDERABLES DERMATOPATHOLOGY LABORATORY [facility] - Department of Dermatology Voice Writing Reporter [place] [address], [facility] [phone] documented in this encounter Visit Diagnoses Not on filedocumented in this encounter
--- OUTSIDE RECORDS SUMMARY | 2025-02-24 08:55 | XMS_ITS | Clinical Summary ---
Author Organization [facility] Address [address] [facility] [place] [address] Care Team Providers Care Display Screen Fabricator Name Role Phone Unavailable Primary Care Provider Unavailabl e Source Comments [facility],non-owned Affiliates and Associated Physician Practices is amultiple site organization consisting of ambulatory clinics and hospital sitesin [place], [place], [place] and [place]. This disclosure is being madepursuant to the Care Everywhere program and may not contain all information available regarding this patient. Last updated 18.[facility] [employer] Allergies No known active allergies Medications * [...] Department Care Team Description 01/03/2025 Lab Requisition [facility] - DermPath Lab [address] [facility], [place] [address] Blanca Nunes MD Basal cell carcinoma of [...] VACCINE (1 - 2023-2 5 season) 2024 DEPRESSION SCREENING 11/20/2024 INFLUENZA VACCINE (Season Ended) 2025 HIB VACCINE Aged Out No longer eligi [...] Comments DERMATOPATHOLOGY Routine 01/03/2025 12:0 0 AM BLEACH BOILER FILLER Basal cell carcinoma of skin of right lower limb, including hip from Last 3 Months Results * DERMATOPATHOLOGY (01/03/2025 12:00 AM [facility]) Case Report Dermatopathology Report Case: [id number] Authorizing Provider: Blanca Nunes MD Collected: 01/03/2025 12:00 AM Ordering Location: [facility] - Received: 01/06/2025 01:43 PM [...] of a non-oriented ellipse of skin measuring 01w47k5 mm. The epidermal surface is unremarkable. The [...] purposes. Billing Codes Specimen Charges Stain Charges 95567 1 5 2:08 PM BLEACH BOILER FILLER DERMATOPATHOLOGY LABORATORY Embedded Images 5 2:08 PM BLEACH BOILER FILLER DERMATOPATHOLOGY LABORATORY Pathology/Cytolog y TISSUE SPECIMEN FROM SKIN / Unknown 01/03/2025 01/06/2025 1:43 PM BLEACH BOILER FILLER Blanca Nunes MD LAB - PATHOLOGY/CYTO LOGY ORDERABLES DERMATOPATHOLOGY LABORATORY [facility] - Department of Dermatology [facility] Medicine [address] [place] [address], [address] [phone] from Last 3 Months
--- OUTSIDE RECORDS SUMMARY | 2025-02-24 08:55 | XMS_ITS | Encounter Summary ---
Author Organization [facility] Address [address] [facility] [place] [address] Care Team Providers Care Environmental Services Specialist Name Role Phone Unavailable Primary Care Provider Unavailabl e Encounter Details Date Type Department Care Team (Late st Contact Info) Description 01/03/2025 Lab Requisition [facility] - DermPath Lab [address] [facility] [place] [id number] Blanca Nunes MD [address] [place] [address] [place] [address] Basal cell carcinoma of skin [...] Comments DERMATOPATHOLOGY Routine 01/03/2025 12:0 0 AM ENGLISH AND READING INSTRUCTOR Basal cell carcinoma of skin of right lower limb, including hip documented in this encounter Results * DERMATOPATHOLOGY (01/03/2025 12:00 AM ENGLISH AND READING INSTRUCTOR) Case Report Dermatopathology Report Case: [id number] Authorizing Provider: Blanca Nunes MD Collected: 01/03/2025 12:00 AM Ordering Location: [facility] - Received: 01/06/2025 01:43 PM DermPath Lab Pathologist: Lainey Cabrera MD Specimen: Skin, right anterior thigh 2:08 PM [facility] DERMATOPATHOLOGY LABORATORY Final Diagnosis Specimen A. SKIN, right anterior thigh: DERMAL SCAR RESIDUAL BASAL CELL CARCINOMA NOT IDENTIFIED (L90.5) 2:08 PM [facility] DERMATOPATHOLOGY LABORATORY Clinical History BCC Check margins/prior biopsy 2:08 PM [facility] DERMATOPATHOLOGY LABORATORY Gross Description Specimen A: Received is one formalin filled container labeled with the patient's name and designated right anterior thigh. The specimen consists of a non-oriented ellipse of skin measuring 43t73t9 mm. The epidermal surface is unremarkable. The margin is inked green. The 12 o'clock and 6 o'clock tips are submitted in cassette 1. The remainder of the ellipse is serially sectioned and submitted in cassette 2-3. Jar 0. 2:08 PM [facility] DERMATOPATHOLOGY LABORATORY Microscopic Description Specimen A. SKIN, right anterior thigh: There are fibroblasts and collagen bundles oriented parallel to the skin surface. There are elongated blood vessels, some of which are oriented perpendicular to the skin surface. No basal cell carcinoma is identified. 2:08 PM [facility] DERMATOPATHOLOGY LABORATORY Disclaimer An external and [...] purposes. Billing Codes Specimen Charges Stain Charges 87643 1 2:08 PM [facility] DERMATOPATHOLOGY LABORATORY Embedded Images 2:08 PM [facility] DERMATOPATHOLOGY LABORATORY Pathology/Cytolog y TISSUE SPECIMEN FROM SKIN / Unknown 01/03/2025 01/06/2025 1:43 PM ENGLISH AND READING INSTRUCTOR Blanca Nunes MD LAB - PATHOLOGY/CYTO LOGY ORDERABLES DERMATOPATHOLOGY LABORATORY [facility] - Department of Dermatology [facility] Medicine [address] [place] [address], [address] [phone] documented in this encounter Visit Diagnoses Diagnosis Basal cell carcinoma of skin of right lower limb, including hip Basal cell carcinoma of skin of lower limb, including hip documented in this encounter
--- OUTSIDE RECORDS SUMMARY | 2025-02-24 08:55 | XMS_ITS | Encounter Summary ---
Author Organization [facility] Address [address] [facility] [place] [address] Care Team Providers Care Screw Machine Set Up Operator Name Role Phone Unavailable Primary Care Provider Unavailabl e Encounter Details Date Type Department Care Team (Late st Contact Info) Description 08/10/2022 Lab Requisition [facility] DermPath Lab [address] [place] [address] Abraham Miller MD [address] [place] [address] Social History Tobacco Use Types [...] AM CDT) Case Report Dermatopathology Report Case: [id number] Authorizing Provider: Abraham Miller MD Collected: 08/09/2022 12:00 AM Ordering Location: [facility] DermPath Lab Received: 08/10/2022 04:16 PM [...] 6x3x2 mm. Jar 0. 2 3:52 PM [facility] DERMATOPATHOLOGY LABORATORY Microscopic Description Specimen A. SKIN, [...] characteristic determined by the Dermatopathology Laboratory at [facility], directed by Dr. Maude Cabrera. These tests need not be, and therefore are not, approved by the [place] Food and Drug Administration. The tests are used for clinical purposes. Billing Codes Specimen Charges Stain Charges 53603 76926 1 1 40214 33623 13614 1 1 1 2 3:52 PM CDT DERMATOPATHOLOGY LABORATORY Embedded Images 2 3:52 PM CDT DERMATOPATHOLOGY LABORATORY Pathology/Cytology TISSUE SPECIMEN FROM SKIN / Unknown 08/09/2022 08/10/2022 4:16 PM CDT Miscellaneous samples (specimen) TISSUE SPECIMEN FROM SKIN / Unknown 08/09/2022 08/10/2022 4:16 PM CDT Abraham Miller MD LAB - PATHOLOGY/CYTO LOGY ORDERABLES DERMATOPATHOLOGY LABORATORY [facility] Department [facility] Derm[facility]ology [facility] Medicine [address] [place] [address], [address] [phone] documented in this encounter Visit Diagnoses Not on filedocumented in this encounter
--- OUTSIDE RECORDS SUMMARY | 2025-02-24 08:55 | XMS_ITS | Encounter Summary ---
Author Organization [facility] Address [address] [place] [address] Care Team Providers Care Referral Rn Name Role Phone Unavailable Primary Care Provider Unavailabl e Encounter Details Date Type Department Care Team (Late st Contact Info) Description 09/24/2024 Lab Requisition [facility] - DermPath Lab [address] [place] [phone] Abraham Miller MD [address] [place] [address] Social History Tobacco Use Types Packs/Day Years [...] Diagnosis Comments DERMATOPATHOLOGY Routine 09/23/2024 3:33 AM FURNITURE ARRANGER documented in this encounter Results * DERMATOPATHOLOGY (09/23/2024 3:33 AM FURNITURE ARRANGER) Case Report Dermatopathology Report Case: [id number] Authorizing Provider: Abraham Miller MD Collected: 09/23/2024 03:33 AM Ordering Location: [facility] - Received: 09/24/2024 03:14 PM DermPath Lab Pathologist: Lainey Cabrera MD Specimens: A) - Skin, right superior lateral chest B) - Skin, right lateral side of chest C) - Skin, right mid matt thigh 3:49 PM [facility] DERMATOPATHOLOGY LABORATORY Final Diagnosis Specimen A. 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 SKIN, right lateral side of chest: INTRADERMAL MELANOCYTIC NEVUS (D22.5) Specimen C. SKIN, right mid matt thigh: BASAL CELL CARCINOMA, NODULAR TYPE (C44.712) 4 3:49 PM [facility] DERMATOPATHOLOGY LABORATORY Clinical History A: R/O dysplastic nevus. Check margins B: R/O inflamed angioma vs inflamed nevus C: R/O BCC vs SCC 3:49 PM [facility] DERMATOPATHOLOGY LABORATORY Gross Description Specimen [...] specimen consists of a shave biopsy measuring 88k99l3 mm. Jar 0. 3:49 PM [facility] DERMATOPATHOLOGY LABORATORY Microscopic Description Specimen [...] cytoplasmic ratio and peripheral palisading. 3:49 PM [facility] DERMATOPATHOLOGY LABORATORY Disclaimer An external and internal positive and negative controls are appropriate for the histochemical, immunohistochemical and immunofluorescence stain(s) in this case (if any), except where stated explicitly. The performance characteristics of the stain(s) cited in this report were developed and its performance characteristic determined by the Dermatopathology Laboratory at [facility], directed by Dr. Maude Cabrera. These tests need not be, and therefore are not, approved by the [place] Food and Drug Administration. The tests are used for clinical purposes. Billing Codes Specimen Charges Stain Charges 09694 21412 28524 1 1 1 4 3:49 PM FURNITURE ARRANGER DERMATOPATHOLOGY LABORATORY Embedded Images 3:49 PM FURNITURE ARRANGER DERMATOPATHOLOGY LABORATORY Pathology/Cytology TISSUE SPECIMEN FROM SKIN / Unknown 09/23/2024 3:33 AM FURNITURE ARRANGER 09/24/2024 3:14 PM FURNITURE ARRANGER Miscellaneous samples (specimen) TISSUE SPECIMEN FROM SKIN / Unknown 09/23/2024 3:33 AM FURNITURE ARRANGER 09/24/2024 3:14 PM FURNITURE ARRANGER Miscellaneous samples (specimen) TISSUE SPECIMEN FROM SKIN / Unknown 09/23/2024 3:33 AM FURNITURE ARRANGER 09/24/2024 3:14 PM FURNITURE ARRANGER Abraham Miller MD LAB - PATHOLOGY/CYTO LOGY ORDERABLES DERMATOPATHOLOGY LABORATORY [facility] - Department of Dermatology [facility] Medicine [address] [place] [address], [address] [phone] documented in this encounter Visit Diagnoses Not on filedocumented in this encounter
--- NOTE | 2025-02-24 12:22 | WPDPFTINT ---
PFT Procedure Performed PFT Procedure Performed Spirometry with Pre/Post Bronchodilator Plethysmography (Lung Vol) Diffusing Cap (DLCO) Flow Vol Loop PFT Interpretation This is a pulmonary function test with pre and post-bronchodilator spirometry, plethysmography and diffusing capacity. The test was performed and results interpreted in accordance with the 2019 and 2005 ATS/ERS Task Force guidelines respectively using the Global Lung Function Initiative-2012 reference equations. Patient demonstrated good effort and cooperation. Reproducibility criteria were met. The quality of the pre bronchodilator spirometry maneuver was Grade A and post bronchodilator spirometry maneuver was Grade A. Findings: Spirometry: The contour the inspiratory and expiratory flow tracing are normal. The pre bronchodilator FVC is 3.93 L, 103% predicted. The pre bronchodilator FEV1 is 2.86 L, 95% predicted. The pre bronchodilator FEV1: FVC ratio 73%. The post bronchodilator FVC is 4.16 L, representing a 6% increase. The post bronchodilator FEV1 is 3.14 L, representing a 10% increase. The post bronchodilator FEV1: FVC ratio 76%. Plethysmography: The total lung capacity is 6.11 L, 108% predicted. The functional residual capacity is 2.86 L, 89% predicted. The residual volume is 2.09 L, 100% predicted. Diffusing capacity: The diffusing capacity unadjusted for hemoglobin and carboxyhemoglobin is 26.6, 112% predicted. The diffusing capacity adjusted for alveolar volume is 4.76, 110% predicted. Impression: The spirometry is normal without evidence of an obstructive abnormality. There is no significant improvement after inhaling a single dose of albuterol. The lung volumes are normal. The diffusing capacity is normal. There are no prior studies for comparison
== END 2025-02-24 08:33 | disposition home or self-care (01) ==
PROVIDERS: PCP Family Medicine; Visit Provider Physician Assistant
DX: R06.02 Shortness of breath (principal); R05.9 Cough, unspecified
CPT/HCPCS: 94060; 94726; 94729

== ENCOUNTER 2025-06-06 10:25 | Outpatient (CLI) | payer OTHER, SELFPAY ==
--- NOTE | ~2025-06-06 | DEXA_ITS ---
Bone Density Report Name: ARACELIS ANTOINE Age: 55 Sex: Female Ethnicity: White Date of : 1970 Indication: postmenopausal; screening for osteoporosis; Referring Provider: ANSON, HAMZAH Study: Bone densitometry was performed. Exam Date: June 06, 2025 Accession number: [id number] Bone Density: Region BMD T-score Z-score Classification AP Spine(L1-L4) 0.994 -0.5 0.6 Normal Femoral Neck (Left) 0.683 -1.5 -0.4 Osteopenia Total Hip (Left) 0.825 -1.0 -0.3 Normal Femoral Neck (Right) 0.763 -0.8 0.3 Normal Total Hip (Right) 0.880 -0.5 0.2 Normal Total Hip Mean 0.852 -0.8 -0.1 Normal World Health Organization criteria for BMD impression classify patients as: Normal (T-score at or above -1.0), Osteopenia (T-score between -1.0 and -2.5), or Osteoporosis (T-score at or below -2.5). 10-year Fracture Risk(1): Major Osteoporotic Fracture 6.5% Hip Fracture 0.5% Reported Risk Factors: [place] (), Neck BMD=0.683, BMI=29.7 (1) FRAX(R) Version 3.08. Fracture probability calculated for an untreated patient. Fracture probability may be lower if the patient has received treatment. Clinical Information Provided by Patient: Has used the following medications: MTV, IUD Patient maximum height was 68.0 Menopause Age: 54 No regular weight bearing exercise Drinks caffeinated beverages Onset of menses at age 12 Number of children 3 Missed period for more than 6 months in a row Impression: The patient has low bone mass, based on the Left Femoral Neck T-score. The patient has an estimated ten-year risk of hip fracture of 0.5% and an estimated ten-year risk of major fracture of 6.5%, based on the WHO FRAX algorithm. Discussion: BONE DENSITY IS LOW AT ONE OR MORE SKELETAL SITES. This patient's lowest T-score is low at one or more skeletal sites. It meets the World Health Organization's (WHO) criteria for ?low bone mass? (T-score between -1.0 and -2.5). The patient's 10-year risk of fracture as calculated by FRAX is less than the threshold where pharmacological therapy is recommended by the National Osteoporosis Foundation (NOF). However, all treatment decisions require clinical judgment and consideration of individual patient factors, including patient preferences, comorbidities, previous drug use, risk factors not captured in the FRAX model (e.g., frailty, falls, vitamin D deficiency, increased bone turnover, interval significant decline in bone density) and possible under or overestimation of fracture risk by FRAX. The patient should follow a healthful lifestyle (good nutrition with adequate calcium and vitamin D, and appropriate weight-bearing exercise). Follow-Up: Consider repeating this study in 2 to 3 years to reassess this patient's status, or sooner if there is some new clinical indication. Reported by: COLEEN on 06/06/2025 2:35:00 PM. Reviewed, dictated and finalized at location A.
== END 2025-06-06 10:26 | disposition home or self-care (01) ==
LOC: MICIMG 10:26
PROVIDERS: PCP Family Medicine; Visit Provider Nurse Practitioner
DX: Z13.820 Encounter for screening for osteoporosis (principal); M85.852 Other specified disorders of bone density and structure, left thigh; Z78.0 Asymptomatic menopausal state
CPT/HCPCS: 77080

== ENCOUNTER 2025-08-26 16:09 | Outpatient (CLI) | payer OTHER, SELFPAY ==
--- NOTE | ~2025-08-26 | XR_ITS ---
EXAMINATION: XR knee RT min 4V, 08/26/2025 16:14 CDT HISTORY: M17.11 - Unilateral primary osteoarthritis, right knee COMPARISON: No comparisons available. Findings: No acute fracture or malalignment. Moderate tricompartmental degenerative changes, small effusion Soft tissues unremarkable. Impression: No acute fracture or malalignment. Reviewed, dictated and finalized at location P. Impression: No acute fracture or malalignment.
== END 2025-08-26 16:10 | disposition home or self-care (01) ==
LOC: MICIMG 16:10
PROVIDERS: PCP Orthopaedic Surgery; Visit Provider Orthopaedic Surgery
DX: M17.11 Unilateral primary osteoarthritis, right knee (principal)
CPT/HCPCS: 73564